=== PATIENT | female | born 1965 | race African-American/Black ===

== ENCOUNTER 2016-10-23 22:04 | Emergency (ER) | payer BC ==
[2016-10-23 23:04] LABS: ABSOLUTE EOSINOPHILS # (AUTO) 0.2 10^3/uL (0.0-0.6); ABSOLUTE LYMPHOCYTES (AUTO) 2.5 10^3/uL (0.5-4.7); ABSOLUTE MONOCYTES (AUTO) 0.4 10^3/uL (0.1-1.4); BASOPHILS % (AUTO) 0.4 % (0-2); EOSINOPHILS % (AUTO) 3.2 % (0-6); HEMOGLOBIN 13.3 g/dL (12.0-15.5); HGB HCT DIFFERENCE 0.9; LYMPHOCYTES % (AUTO) 34.8 % (13-45); MEAN CORPUSCULAR HEMOGLOBIN 30.4 pg (27.0-33.4); MEAN CORPUSCULAR VOLUME 89 fl (80-97); MONOCYTES % (AUTO) 5.4 % (3-13); RED BLOOD COUNT 4.37 10^6/uL (3.72-5.28); RED CELL DISTRIBUTION WIDTH 13.3 % (11.5-14.0); SEGMENTED NEUTROPHILS % (AUTO) 56.2 % (42-78); WHITE BLOOD COUNT 7.1 10^3/uL (4.0-10.5)
[2016-10-23 23:13] LABS: ALANINE AMINOTRANSFERASE 20 U/L (9-52); ALKALINE PHOSPHATASE 60 U/L (38-126); ANION GAP 12 (5-19); ASPARTATE AMINO TRANSFERASE 29 U/L (14-36); BILIRUBIN,DIRECT 0.9 mg/dL (0.0-0.4); BILIRUBIN,TOTAL 1.2 mg/dL (0.2-1.3); BLOOD UREA NITROGEN 11 mg/dL (7-20); CALCIUM 9.4 mg/dL (8.4-10.2); CARBON DIOXIDE 25 mmol/L (22-30); CHLORIDE 105 mmol/L (98-107); CREATININE RESULT 0.78 mg/dL (0.52-1.25); GLUCOSE 116 mg/dL (75-110); POTASSIUM 3.8 mmol/L (3.6-5.0); SODIUM 141.6 mmol/L (137-145); TOTAL PROTEIN 7.3 g/dL (6.3-8.2)
[2016-10-23 23:21] LABS: APPEARANCE,URINE CLEAR; BILIRUBIN,URINE NEGATIVE (NEGATIVE); GLUCOSE, URINE NEGATIVE (NEGATIVE); KETONES,URINE NEGATIVE (NEGATIVE); LEUKOCYTE ESTERASE,URINE NEGATIVE (NEGATIVE); NITRITE,URINE NEGATIVE (NEGATIVE); PROTEIN,URINE NEGATIVE (NEGATIVE); URINE SPECIFIC GRAVITY 1.003; UROBILINOGEN,URINE NEGATIVE mg/dL (<2.0)
[2016-10-24] MEDS ORDERED: CLONIDINE HCL 0.1 MG TABLET PO ONE (00:31)
[2016-10-24] MEDS ORDERED: DIPHENHYDRAMINE HCL 50 MG/ML VIAL IV ONE (00:47)
[2016-10-24] MEDS ORDERED: PROCHLORPERAZINE EDISYLATE INJ 10 MG/2 ML VIAL IV ONE (00:47)
[2016-10-24] MEDS ORDERED: KETOROLAC TROMETHAMINE INJ/PF 30 MG/1 ML SDV IV ONE (00:47)
--- NOTE | 2016-10-24 00:52 | ER Document Report ---
ED General - General Chief Complaint: Headache Stated Complaint: HEADACHE Notes: Patient is a 51-year-old female past medical history of hypertension who presents with a dull, constant, throbbing right-sided headache that has been present since this morning. States that it was gradual in onset and got progressively worse through the day. States lights and sounds worsen the headache. She has not tried anything to improve the headache. States that her headache often gets worse when her blood pressure is uncontrolled. She denies any focal weakness, numbness, fever, confusion, or vomiting. Has had similar headaches in the past. She has not seen a primary care doctor regarding today' s concerns. TRAVEL OUTSIDE OF THE [place] IN LAST 30 DAYS: No - Related Data Allergies/Adverse Reactions: No Known Allergies Allergy (Verified 03/15/16 16:29) Past Medical History - General Information source: Patient - Social History Smoking Status: Never Smoker Frequency of alcohol use: None Drug Abuse: None Lives with: Spouse/Significant other Family History: Reviewed & Not Pertinent Patient has suicidal ideation: No Patient has homicidal ideation: No Pulmonary Medical History: Reports: Hx Asthma Renal/ Medical History: Denies: Hx Peritoneal Dialysis - Immunizations Hx Diphtheria, Pertussis, Tetanus Vaccination: Yes Review of Systems - Review of Systems Notes: Constitutional: Negative for fever. HENT: Negative for sore throat. Eyes: Negative for visual changes. Cardiovascular: Negative for chest pain. Respiratory: Negative for shortness of breath. Gastrointestinal: Negative for abdominal pain, vomiting or diarrhea. Genitourinary: Negative for dysuria. Musculoskeletal: Negative for back pain. Skin: Negative for rash. Neurological: Positive for headaches, negative for weakness or numbness. 10 point ROS negative except as marked above and in HPI. Physical Exam - Vital signs Vitals: Temp Pulse Resp BP Pulse Ox 98.5 F 96 18 176/79 H 97 10/23/16 22:24 10/23/16 22:24 10/23/16 22:24 10/23/16 22:24 10/23/16 22:24 Interpretation: Hypertensive Notes: PHYSICAL EXAMINATION: GENERAL: Well-appearing, well-nourished and in no acute distress. HEAD: Atraumatic, normocephalic. EYES: Pupils equal round and reactive to light, extraocular movements intact, sclera anicteric, conjunctiva are normal. ENT: nares patent, oropharynx clear without exudates. Moist mucous membranes. NECK: Normal range of motion, supple without lymphadenopathy LUNGS: Breath sounds clear to auscultation bilaterally and equal. No wheezes rales or rhonchi. HEART: Regular rate and rhythm without murmurs ABDOMEN: Soft, nontender, normoactive bowel sounds. No guarding, no rebound. No masses appreciated. EXTREMITIES: Normal range of motion, no pitting or edema. No cyanosis. NEUROLOGICAL: Face symmetric. Tongue protrudes midline. Extraocular motions intact. Pupils are 2 mm and equally reactive. Normal speech, normal gait. 5 out of 5 strength in both the distal and proximal upper and lower extremities bilaterally. Sensation is grossly intact throughout. Finger to nose testing normal. Pronator drift normal. PSYCH: Normal mood, normal affect. SKIN: Warm, Dry, normal turgor, no rashes or lesions noted. Course - Re-evaluation Re-evalutation: 10/24/16 00:50 Presentation of a headache that appears to be most consistent with tension versus migrainous type headache. Headache was not maximal in onset, patient has no focal neurologic deficits, no nuchal rigidity, vital signs within normal limits, no papilledema, and patient is overall well in appearance. Based on clinical history and examination I do not suspect an acute subarachnoid hemorrhage, dural venous sinus thrombosis, acute meningitis, or intercranial mass. Given my low clinical suspicion for any acute life-threatening etiology, I do not feel advanced neuro imaging or laboratory testing is indicated at this time. Will proceed with headache cocktail and reassess. 10/24/16 02:26 Patient has had complete resolution of her headache and her blood pressure is improved at this time.At this time will discharge with return precautions and follow-up recommendations. Verbal discharge instructions given a the bedside and opportunity for questions given. Medication warnings reviewed. Patient is in agreement with this plan and has verbalized understanding of return precautions and the need for primary care follow-up in the next 24-72 hours. - Vital Signs Vital signs: Temp Pulse Resp BP Pulse Ox 98.5 F 96 18 176/79 H 97 10/23/16 22:24 10/23/16 22:24 10/23/16 22:24 10/23/16 22:24 10/23/16 22:24 - Laboratory Result Diagrams: 10/23/16 22:35 10/23/16 22:35 Laboratory results interpreted by me: 10/23/16 22:35 Glucose 116 H Direct Bilirubin 0.9 H Discharge - Discharge Clinical Impression: Migraine headache Qualifiers: Migraine type: unspecified Status migrainosus presence: with status migrainosus Intractability: not intractable Qualified Code(s): G43.901 - Migraine, unspecified, not intractable, with status migrainosus Condition: Good Disposition: HOME, SELF-CARE Additional Instructions: You were seen today for a migraine headache. Please follow-up with your primary care doctor regarding today's ED visit. Return to emergency department immediately if you develop a headache that gets to its maximum severity within 20 minutes of onset, you pass out, you develop weakness, numbness, changes in your vision, become unable to keep any fluids down for more than 12 hours, or develop a fever greater than 100.4 degrees Fahrenheit. If you develop a similar migraine headache in the future I recommend that you immediately take 600 mg of ibuprofen and 50 mg of Benadryl and go to sleep as quickly as possible. This can often prevent your migraine headache from becoming severe. You were seen today for blood pressure that was high. This is a long-term risk factor for multiple medical problems including heart attack and stroke. However, the blood pressure in of itself will not cause you to have an acute stroke or heart attack over the course of just several days or weeks. You need to have a gradual reduction of your blood pressure back to normal levels over the next several months in conjunction with your primary care physician. Return if you develop headache, weakness, numbness, chest pain, pass out, or have any other symptoms that are concerning to you. Prescriptions: Hydrochlorothiazide 25 mg PO DAILY #30 tablet
[2016-10-24 02:35] VITALS: BP 139/68
== END 2016-10-24 02:36 | disposition home or self-care (01) ==
LOC: ER 22:04
DX: G43.901 Migraine, unspecified, not intractable, with status migrainosus (principal); I10 Essential (primary) hypertension; J45.909 Unspecified asthma, uncomplicated
CPT/HCPCS: 99283; 96374; 96375; 36415; 85025; 80053; 81001; J1200; J1885; J0780

== ENCOUNTER → 2016-11-30 | Outpatient (CLI) | payer BC ==
--- NOTE | 2016-11-30 13:22 | WOMENS IMAGING REPORT ---
EXAM DESCRIPTION: BILAT SCREENING MAMMO W/CAD COMPLETED DATE/TIME: 11/30/2016 7:49 am REASON FOR STUDY: Z12.31, ROUTINE SCREENING MAMMO Z12.31 ENCNTR SCREEN MAMMOGRAM FOR MALIGNANT NEOP LASM OF GARRETT COMPARISON: 2010. TECHNIQUE: Standard craniocaudal and mediolateral oblique views of each breast recorded using [employer] l acquisition. LIMITATIONS: None. FINDINGS: No masses, calcifications or architectural distortion. No areas of suspicion. Read with the assistance of CAD. .[facility] - R2 [employer] Version 1.3 .[facility] - R2 C[employer]ova Version 1.3 .[facility] - R2 C[employer]ova Version 2.4 .[facility] - R2 Cenova Version 2.4 .[facility] - R2 [employer] Version 9.2 IMPRESSION: NORMAL MAMMOGRAM. BIRADS 1. BREAST DENSITY: a. The breasts are almost entirely fatty. BIRAD: 1 NEGATIVE RECOMMENDATION: ROUTINE SCREENING COMMENT: The patient has been notified of the results by letter per SA requirements. Additional no tification policies are in place for contacting patient with suspicious or incomplete findings. Quality ID #[id number]: The [employer] recommends an annual screening mammogram for women aged 40 years or over. This facility utilizes a reminder system to ensure that all patients receive reminder letters, and/or direct phone calls for appointments. This includes reminders for routine scr eening mammograms, diagnostic mammograms, or other Breast Imaging Interventions when appropriate. Th is patient will be placed in the appropriate reminder system. The [employer] (ACR) has developed recommendations for screening MRI of the breast s in certain patient populations, to be used in conjunction with mammography. Breast MRI surveillanc e may be appropriate for women with more than 20% lifetime risk of developing breast cancer as deter mined by genetic testing, significant family history of the disease, or history of mantle radiation f or Hodgkins Disease. ACR Practice Guidelines 2008. TECHNICAL DOCUMENTATION: FINDING NUMBER: (1) ASSESSMENT: (1) JOB ID: [id number] [employer]- All Rights Reserved
== END ==
LOC: WI 10:17
PROVIDERS: ATTEND Physician Assistant
DX: Z12.31 Encounter for screening mammogram for malignant neoplasm of breast (principal)
CPT/HCPCS: 77067; G0202

== ENCOUNTER 2017-07-27 00:03 | Emergency (ER) | payer BC ==
[2017-07-27] MEDS ORDERED: ASPIRIN 81 MG TABLET, CHEWABLE PO ONE (03:12)
[2017-07-27 05:27] LABS: ABSOLUTE EOSINOPHILS # (AUTO) 0.2 10^3/uL (0.0-0.6); ABSOLUTE LYMPHOCYTES (AUTO) 1.6 10^3/uL (0.5-4.7); ABSOLUTE MONOCYTES (AUTO) 0.7 10^3/uL (0.1-1.4); ABSOLUTE NEUT (AUTO) 2.3 10^3/uL (1.7-8.2); BASOPHILS % (AUTO) 0.8 % (0-2); EOSINOPHILS % (AUTO) 3.2 % (0-6); HEMATOCRIT 37.4 % (36.0-47.0); HEMOGLOBIN 12.7 g/dL (12.0-15.5); LYMPHOCYTES % (AUTO) 33.4 % (13-45); MEAN CORPUSCULAR HEMOGLOBIN 30.8 pg (27.0-33.4); MEAN CORPUSCULAR HGB CONC 33.9 g/dL (32.0-36.0); MEAN CORPUSCULAR VOLUME 91 fl (80-97); MONOCYTES % (AUTO) 13.7 % (3-13); PLATELET COUNT 330 10^3/uL (150-450); RED BLOOD COUNT 4.12 10^6/uL (3.72-5.28); RED CELL DISTRIBUTION WIDTH 12.8 % (11.5-14.0); SEGMENTED NEUTROPHILS % (AUTO) 48.9 % (42-78); TOTAL CELLS COUNTED % (AUTO) 100 %; WHITE BLOOD COUNT 4.8 10^3/uL (4.0-10.5)
[2017-07-27 05:39] LABS: ALANINE AMINOTRANSFERASE 31 U/L (9-52); ALKALINE PHOSPHATASE 65 U/L (38-126); ANION GAP 10 (5-19); ASPARTATE AMINO TRANSFERASE 50 U/L (14-36); BILIRUBIN,DIRECT 0.6 mg/dL (0.0-0.4); BILIRUBIN,TOTAL 0.9 mg/dL (0.2-1.3); BLOOD UREA NITROGEN 12 mg/dL (7-20); CALCIUM 9.4 mg/dL (8.4-10.2); CARBON DIOXIDE 28 mmol/L (22-30); CHLORIDE 107 mmol/L (98-107); CREATINE KINASE 212 U/L (30-135); GLUCOSE 108 mg/dL (75-110); SODIUM 144.6 mmol/L (137-145); TOTAL PROTEIN 6.9 g/dL (6.3-8.2)
--- NOTE | 2017-07-27 05:40 | RADIOLOGY REPORT (SQ) ---
EXAM DESCRIPTION: CHEST SINGLE VIEW CLINICAL HISTORY: chest pain COMPARISON: 07/27/2015 FINDINGS: Single frontal view of the chest. The cardiomediastinal silhouette has normal size and contour. No consolidation, pneumothorax, or pleural effusion. No displaced rib fractures identified. Upper abdominal soft tissues are unremarkable. Leads overlie the chest IMPRESSION: 1. No acute pulmonary process identified.
[2017-07-27 05:51] LABS: CREATINE KINASE MB 0.52 ng/mL (<4.55)
[2017-07-27 05:52] LABS: TROPONIN I < 0.012 ng/mL
[2017-07-27] MEDS ORDERED: IBUPROFEN 800 MG TABLET PO ONE (08:02)
--- NOTE | 2017-07-27 08:02 | ER Document Report ---
ED General - General Chief Complaint: Chest Pain Stated Complaint: CHEST DISCOMFORT Time Seen by Provider: 07/27/17 07:15 Notes: Patient is a 52-year-old female presents emergency department with 3 days of dry cough. Patient states that last evening she was lying in bed got up to go get some Tylenol had a coughing spell and then had some chest tightness afterwards. She does admit to a history of asthma and states that her chest tightness lasted about 15 minutes and felt similar to previous asthma attacks. This wears off all on its own. She did not have to utilize any of her home inhalers. She states what brought her in is that she had some chest pain only with movement and to touch on the right part of her chest. She states that it hurts to touch and when she coughs. She denies any chest pain, pleurisy with inspiration. She denies any pain supine. She describes it as a 2 out of 5 in severity. She otherwise denies any upper respiratory infection symptoms, fevers , body aches, headache, productive cough, shortness of breath, dyspnea on exertion, nausea, vomiting, epigastric pain. Primary care is with [facility] in [facility] Denies any allergies Takes hydrochlorothiazide 25 mg once a day for high blood pressure Denies any history of hyperlipidemia, diabetes, [place], previous chest pain, CVA, DVT, PE, recent travel, recent surgery, control use. Denies any previous cath or stress test patient is a non-smoker. TRAVEL OUTSIDE OF THE [place] IN LAST 30 DAYS: No - Related Data Allergies/Adverse Reactions: No Known Allergies Allergy (Verified 03/15/16 16:29) Past Medical History - Social History Smoking Status: Never Smoker Chew tobacco use (# tins/day): No Frequency of alcohol use: None Drug Abuse: None Family History: Reviewed & Not Pertinent Patient has suicidal ideation: No Patient has homicidal ideation: No - Past Medical History Cardiac Medical History: Reports: Hx Hypertension Pulmonary Medical History: Reports: Hx Asthma Renal/ Medical History: Denies: Hx Peritoneal Dialysis - Immunizations Hx Diphtheria, Pertussis, Tetanus Vaccination: Yes Review of Systems - Review of Systems Constitutional: See HPI EENT: No symptoms reported Cardiovascular: No symptoms reported Respiratory: See HPI Gastrointestinal: No symptoms reported Musculoskeletal: No symptoms reported Neurological/Psychological: No symptoms reported -: Yes All other systems reviewed and negative Physical Exam - Vital signs Vitals: Temp Pulse Resp BP Pulse Ox 98.7 F 79 16 159/88 H 99 07/27/17 03:02 07/27/17 03:02 07/27/17 03:02 07/27/17 03:02 07/27/17 03:02 - Notes Notes: PHYSICAL EXAM GENERAL: Alert, interacts well. HEAD: Normocephalic, atraumatic. EYES: Pupils equal, round, and reactive to light. Extraocular movements intact. ENT: Oral mucosa moist, tongue midline. NECK: Full range of motion. Supple. Trachea midline. LUNGS: Clear to auscultation bilaterally, no wheezes, rales, or rhonchi. No respiratory distress. HEART: Chest wall tender right parasternal area with pain reproducible to palpation. Regular rate and rhythm. No murmurs, gallops, or rubs. ABDOMEN: Soft, nondistended, nontender. No guarding, rebound, or rigidity.. Bowel sounds present in all 4 quadrants. EXTREMITIES: Moves all 4 extremities spontaneously. No edema, radial and dorsalis pedis pulses 2/4 bilaterally. No cyanosis. NEUROLOGICAL: Alert and oriented x4. Normal speech. PSYCH: Normal affect, normal mood. SKIN: Warm, dry, normal turgor. No rashes or lesions noted. Course - Re-evaluation Re-evalutation: 07/27/17 10:25 Patient is a 52-year-old female is hemodynamically stable, no acute distress and afebrile. Presentation is consistent with costochondritis likely associated with patient's recent upper respiratory infection and cough. Chest x -ray does not reveal any evidence of acute infiltrate. Patient saturating 100% on room air. Able to ambulate without any difficulty, associated tachypnea or tachycardia. Patient is PERC negative. Patient is very well in appearance, vitals within normal limits. Low clinical suspicion for ACS given clinical history, exam, EKG without ST elevations or depressions, and negative initial troponin. HEART score less than or equal to 3. PE also seems unlikely given clinical history, absence of tachycardia or dyspnea. Well's score of 0. CXR without evidence of pneumothorax or pneumonia. No widened mediastinum. Aortic dissection also seems unlikely given history, symmetric pulses, CXR, and vitals. At this time will discharge with return precautions and follow-up recommendations. Verbal discharge instructions given a the bedside and opportunity for questions given. Medication warnings reviewed. Patient is in agreement with this plan and has verbalized understanding of return precautions and the need for primary care follow-up in the next 24-72 hours. - Vital Signs Vital signs: Temp Pulse Resp BP Pulse Ox 98.7 F 79 20 153/78 H 98 07/27/17 03:02 07/27/17 03:02 07/27/17 07:14 07/27/17 07:14 07/27/17 07:14 - Laboratory Result Diagrams: 07/27/17 05:15 07/27/17 05:15 Laboratory results interpreted by me: 07/27/17 07/27/17 05:15 05:15 Monocytes % 13.7 H Direct Bilirubin 0.6 H AST 50 H Creatine Kinase 212 H - Diagnostic Test Radiology reviewed: Image reviewed, Reports reviewed - EKG Interpretation by Me EKG shows normal: Sinus rhythm Rate: Normal Rhythm: NSR When compared to previous EKG there are: No significant change Discharge - Discharge Clinical Impression: Chest wall pain Condition: Good Disposition: HOME, SELF-CARE Additional Instructions: NORMAL EXAM AND WORKUP: At this time, your examination and workup show no significant abnormality. No significant abnormal physical findings were noted. All laboratory, EKG, and imaging (x-ray, CT scans, ultrasound) studies that were ordered show no significant abnormality. Although your examination and all studies that were ordered showed no significant abnormal finding, there are no examinations and no studies that are 100% accurate. There is always the possibility that some abnormality could exist and not be detected with physical examination or within the limits and capabilities of laboratory and other studies. You should return or follow up as you were instructed on your visit today for further evaluation if your symptoms do not resolve. CHEST WALL PAIN: Your chest pain may be coming from the chest wall. This is often caused by straining the muscles or joints in the chest during physical activity, direct trauma, coughing, or vigorous vomiting. Persons with arthritis are especially prone to this type of pain, due to inflammation of the cartilage joints near the breast bone. Occasionally, no cause can be found. Rest from strenuous physical activity. This kind of chest pain is usually made worse by movement of the chest. Depending on the symptoms, we may prescribe medicine for pain, muscle relaxation, and antiinflammatory effects. If the pain is new, and seems to be due to muscle strain, cold packs can help. Otherwise, apply gentle warmth to the painful area for 15 minutes every hour or two. You should call contact the doctor immediately if things change. Further evaluation is needed if you develop a fever or cough, if the nature of the pain changes, or if you become short of breath. FOLLOW-UP CARE: If you have been referred to a physician for follow-up care, call the physician s office for an appointment as you were instructed or within the next two days. If you experience worsening or a significant change in your symptoms, notify the physician immediately or return to the Emergency Department at any time for re-evaluation. Referrals: PHOEBE GUERRA MD [ACTIVE STAFF] - Follow up in 3-5 days
--- NOTE | 2017-07-27 09:20 | EKG REPORT ---
SEVERITY:- BORDERLINE ECG - SINUS RHYTHM PROBABLE LEFT ATRIAL ABNORMALITY : Confirmed by: Modesto Conway 27-Jul-2017 09:19:42
--- NOTE | 2017-07-27 09:20 | EKG REPORT ---
SEVERITY:- BORDERLINE ECG - SINUS RHYTHM BORDERLINE PROLONGED QT INTERVAL : Confirmed by: Modesto Conway 27-Jul-2017 09:19:50
[2017-07-27] MEDS ORDERED: HYDROCHLOROTHIAZIDE 25 MG TABLET PO ONE (09:28)
[2017-07-27 10:57] VITALS: BP 157/78
== END 2017-07-27 11:08 | disposition home or self-care (01) ==
LOC: ER 00:03
DX: R07.89 Other chest pain (principal); J45.909 Unspecified asthma, uncomplicated; R05 Cough; I10 Essential (primary) hypertension; Z79.899 Other long term (current) drug therapy
CPT/HCPCS: 36415; 71045; 80053; 82550; 82553; 84484; 85025; 93005; 93010; 99284

== ENCOUNTER → 2017-11-14 | Outpatient (CLI) | payer BC ==
--- NOTE | 2017-11-15 10:29 | XCELERA REPORT ---
[address] [address] Transthoracic Echocardiogram Report Name: CHRISTINA KUMAR Age: 52 yrs Gender: Female : 1965 Patient Status: Outpatient Patient Location: Study Date: 11/14/2017 11:12 AM Height: 61 in Weight: 204 lb BSA: 1.9 m2 Procedure: A complete two-dimensional transthoracic echocardiogram was performed (2D, M-mode, spectral and color flow Doppler). The study was technically adequate with some images being suboptimal in quality. Reason For Study: CARDIOMEGALY Ordering Physician: JOLENE BOBBY Performed By: Orlando Talley Interpretation Summary The left ventricular ejection fraction is normal. There is borderline concentric left ventricular hypertrophy. The left ventricle is grossly normal size. Doppler measurements suggest pseudonormalized left ventricular relaxation, which is associated with grade II/IV or mild to moderate diastolic dysfunction Wall motion cannot be accurately commented on, but no definite regional wall motion abnormalities noted. The right ventricular systolic function is normal. Borderline right ventricular enlargement. The right atrium is normal in size Borderline left atrial enlargement. There is no mitral valve stenosis. There is a trace amount of mitral regurgitation There is no aortic valve stenosis No aortic regurgitation is present. There is mild pulmonary hypertension by echo There is a mild amount of tricuspid regurgitation Right ventricular systolic pressure is estimated to be elevated at 30- 40mmHg. The aortic root is not well visualized but is probably normal size. The inferior vena cava appeared normal and decreased > 50% with respiration (RAP 5-10 mmHg) There is no pericardial effusion. MMode/2D Measurements & Calculations RVDd: 3.1 cm LVIDd: 4.6 cm FS: 43.8 % Ao root diam: 2.5 cm IVSd: 1.0 cm LVIDs: 2.6 cm EDV(Teich): 98.7 ml LVPWd: 0.87 cm ESV(Teich): 24.6 ml Ao root area: 4.8 cm2 EF(Teich): 75.1 % Doppler Measurements & Calculations MV E max elvis: MV dec slope: Ao V2 max: LV V1 max P.0 cm/sec 200.1 cm/sec 6.1 mmHg MV A max elvis: 495.0 cm/sec2 Ao max PG: LV V1 max: 120.0 cm/sec MV dec time: 16.0 mmHg 123.4 cm/sec MV E/A: 0.83 0.20 sec PA V2 max: TR max elvis: 108.0 cm/sec 254.4 cm/sec PA max P.7 mmHgTR max P.2 mmHg Left Ventricle The left ventricle is grossly normal size. There is borderline concentric left ventricular hypertrophy. The left ventricular ejection fraction is normal. Doppler measurements suggest pseudonormalized left ventricular relaxation, which is associated with grade II/IV or mild to moderate diastolic dysfunction. Wall motion cannot be accurately commented on, but no definite regional wall motion abnormalities noted. Right Ventricle Borderline right ventricular enlargement. There is normal right ventricular wall thickness. The right ventricular systolic function is normal. Atria The right atrium is normal in size. Borderline left atrial enlargement. Interarterial septum not well visualized and not well dopplered. Cannot comment on ASD/PFO presence. Mitral Valve The mitral valve is grossly normal. There is no mitral valve stenosis. There is a trace amount of mitral regurgitation. Aortic Valve The aortic valve is grossly normal. There is no aortic valve stenosis. No aortic regurgitation is present. Tricuspid Valve The tricuspid valve is not well visualized, but is grossly normal. There is no tricuspid stenosis. There is mild pulmonary hypertension by echo. There is a mild amount of tricuspid regurgitation. Right ventricular systolic pressure is estimated to be elevated at 30-40mmHg. Pulmonic Valve The pulmonic valve is not well visualized. Great Vessels The aortic root is not well visualized but is probably normal size. The inferior vena cava appeared normal and decreased > 50% with respiration (RAP 5-10 mmHg). Effusions There is no pericardial effusion. : JOLENE BOBBY > Modesto Conway
== END ==
LOC: SP 10:43
PROVIDERS: ATTEND Physician Assistant
DX: I51.7 Cardiomegaly (principal)
CPT/HCPCS: 93306

== ENCOUNTER 2017-12-17 21:07 | Emergency (ER) | payer OTHER, BC ==
[2017-12-17 21:20] VITALS: BP 167/83
[2017-12-17] MEDS ORDERED: KETOROLAC TROMETHAMINE 60 MG/2 ML SDV IM ONE (22:34)
--- NOTE | 2017-12-17 22:35 | ER Document Report ---
ED Extremity Problem, Lower - General Mode of Arrival: Ambulatory Information source: Patient TRAVEL OUTSIDE OF THE [place] IN LAST 30 DAYS: No - General Chief Complaint: Leg Pain Stated Complaint: RIGHT LEG PAIN Time Seen by Provider: 12/17/17 21:50 Notes: Patient is a 52 year old female that presents today with complaints of RLE pain. Patient states her pain started today and yesterday at worked she was moving "sodas and teas" which she thinks likely caused this injury. Patient denies fevers, chills, hx of DM, or falls/trauma. (TESS JACOME) - Related Data Allergies/Adverse Reactions: No Known Allergies Allergy (Verified 03/15/16 16:29) Past Medical History - General Information source: Patient - Social History Smoking Status: Unknown if Ever Smoked Cigarette use (# per day): No Frequency of alcohol use: None Drug Abuse: None Lives with: Family Family History: Reviewed & Not Pertinent Patient has suicidal ideation: No Patient has homicidal ideation: No - Past Medical History Cardiac Medical History: Reports: Hx Hypertension Pulmonary Medical History: Reports: Hx Asthma Renal/ Medical History: Denies: Hx Peritoneal Dialysis Surgical Hx: Negative - Immunizations Hx Diphtheria, Pertussis, Tetanus Vaccination: Yes Review of Systems - Review of Systems Constitutional: denies: Chills, Fever EENT: No symptoms reported Cardiovascular: No symptoms reported Respiratory: No symptoms reported Gastrointestinal: No symptoms reported Genitourinary: No symptoms reported Female Genitourinary: No symptoms reported Musculoskeletal: See HPI, Joint pain - RLE Skin: No symptoms reported Hematologic/Lymphatic: No symptoms reported Neurological/Psychological: No symptoms reported -: Yes All other systems reviewed and negative Physical Exam - Vital signs Vitals: Temp Pulse Resp BP Pulse Ox 98.8 F 89 18 167/83 H 98 12/17/17 21:18 12/17/17 21:18 12/17/17 21:18 12/17/17 21:18 12/17/17 21:18 - Notes Notes: Physical Exam: General: Alert, appears well. HEENT: Normocephalic. Atraumatic. PERRLA. Extraocular movements intact. Oropharynx clear. Neck: Supple. Respiratory: No respiratory distress. Abdominal: Normal Inspection. No distension. Extremities: Moves all four extremities. Minimal pain elicited with movement of RLE. Neurological: Normal cognition. AAOx4. Normal speech. Psychological: Normal affect. Normal Mood. Skin: Warm. Dry. Normal color. (TESS JACOME) Course - Re-evaluation Re-evalutation: 12/17/17 22:35 Patient well-appearing in no acute distress no recent traumas or falls. Presents with right leg pain worse with movement and better with rest. She states she was moving a lot of equipment at her work and in the next morning is when her pain started. No history of blood clots in her legs. She has good circulation neurovascularly intact with no edema. Did not feel like her symptoms are suggestive of DVT. Will provide 5 days of steroids and she is to follow-up with her primary care physician next week if symptoms are not improving. (ANDREW CLARK) - Vital Signs Vital signs: Temp Pulse Resp BP Pulse Ox 98.8 F 89 18 167/83 H 98 12/17/17 21:18 12/17/17 21:18 12/17/17 21:18 12/17/17 21:18 12/17/17 21:18 Discharge - Discharge Clinical Impression: Leg strain Condition: Good Disposition: HOME, SELF-CARE Instructions: Muscle Strain ([facility]) Additional Instructions: Please follow-up with your primary care physician within the next week if symptoms are not improving. Please note that your activity for the next week and do not lift more than 25 pounds Prescriptions: Prednisone [Deltasone 20 mg Tablet] 2 tab PO DAILY 5 Days #10 tablet Forms: Return to School, Return to Work Scribe Attestation: 12/20/17 19:10 I personally performed the services described documentation, reviewed and edited the documentation which was dictated to describe my presence, and it accurately records my words and actions. (ANDREW CLARK) Scribe Documentation - Scribe Written by Duncanibe:: Michael Schafer, 12/17/2017 2349 acting as scribe for :: Joaquín
== END 2017-12-17 22:57 | disposition home or self-care (01) ==
LOC: ER 21:07
DX: S86.911A Strain of unspecified muscle(s) and tendon(s) at lower leg level, right leg, initial encounter (principal); M79.604 Pain in right leg; X58.XXXA Exposure to other specified factors, initial encounter; I10 Essential (primary) hypertension; J45.909 Unspecified asthma, uncomplicated
CPT/HCPCS: 99283; J1885

== ENCOUNTER 2018-01-22 03:53 | Emergency (ER) | payer BC ==
[2018-01-22] MEDS ORDERED: ASPIRIN 81 MG TABLET, CHEWABLE PO ONE (04:33)
--- NOTE | 2018-01-22 04:37 | ER Document Report ---
ED Cardiac - General Mode of Arrival: Ambulatory Information source: Patient TRAVEL OUTSIDE OF THE [place] IN LAST 30 DAYS: No <TY GUZMAN - Last Filed: 01/22/18 06:57> <AMINATA SAENZ - Last Filed: 01/22/18 14:19> - General Chief Complaint: Chest Tightness Stated Complaint: NAUSEA Time Seen by Provider: 01/22/18 04:23 Notes: Patient is a 52-year-old female who presents with chief complaint of chest tightness. Patient reports that she woke up at approximately 130 this morning with a headache, states she took ibuprofen 200 mg went back to bed and then woke up a few minutes later with a tightness across the middle of her chest. Patient denies any radiation of this tightness. Does patient does report associated nausea and diarrhea. Denies any shortness of breath. Patient reports the pain is similar to the last time she was seen in the emergency department. Patient reports that she has had a negative cardiac workup done recently. Patient reports that she missed her blood pressure medication yesterday. (TY GUZMAN) - Related Data Allergies/Adverse Reactions: No Known Allergies Allergy (Verified 01/22/18 03:55) Past Medical History - General Information source: Patient - Social History Smoking Status: Never Smoker Frequency of alcohol use: None Drug Abuse: None Lives with: Family Family History: Reviewed & Not Pertinent - Past Medical History Cardiac Medical History: Reports: Hx Hypertension Pulmonary Medical History: Reports: Hx Asthma Renal/ Medical History: Denies: Hx Peritoneal Dialysis - Immunizations Hx Diphtheria, Pertussis, Tetanus Vaccination: Yes <TY GUZMAN - Last Filed: 01/22/18 06:57> Review of Systems - Review of Systems Constitutional: No symptoms reported EENT: No symptoms reported Cardiovascular: See HPI Respiratory: No symptoms reported Gastrointestinal: No symptoms reported Genitourinary: No symptoms reported Female Genitourinary: No symptoms reported Musculoskeletal: No symptoms reported Skin: No symptoms reported Hematologic/Lymphatic: No symptoms reported Neurological/Psychological: No symptoms reported <TY GUZMAN - Last Filed: 01/22/18 06:57> Physical Exam <TY GUZMAN - Last Filed: 01/22/18 06:57> <AMINATA SAENZ - Last Filed: 01/22/18 14:19> - Vital signs Vitals: Temp Pulse Resp BP Pulse Ox 98.0 F 108 H 18 153/89 H 98 01/22/18 03:57 01/22/18 03:57 01/22/18 03:57 01/22/18 03:57 01/22/18 03:57 - Notes Notes: PHYSICAL EXAMINATION: GENERAL: Well-appearing, well-nourished and in no acute distress. HEAD: Atraumatic, normocephalic. EYES: Pupils equal round and reactive to light, extraocular movements intact, conjunctiva are normal. ENT: Nares patent, oropharynx clear without exudates. Moist mucous membranes. NECK: Normal range of motion, supple without lymphadenopathy LUNGS: Breath sounds clear to auscultation bilaterally and equal. No wheezes rales or rhonchi. HEART: Regular rate and rhythm without murmurs ABDOMEN: Soft, nontender, nondistended abdomen. No guarding, no rebound. No masses appreciated. Female : deferred Musculoskeletal: Normal range of motion, no pitting or edema. No cyanosis. NEUROLOGICAL: Cranial nerves grossly intact. Normal speech, normal gait. Normal sensory, motor exams PSYCH: Normal mood, normal affect. SKIN: Warm, Dry, normal turgor, no rashes or lesions noted. (TY GUZMAN) Course - Laboratory Result Diagrams: 01/22/18 04:50 01/22/18 04:50 <TY GUZMAN - Last Filed: 01/22/18 06:57> - Laboratory Result Diagrams: 01/22/18 04:50 01/22/18 04:50 <AMINATA SAENZ - Last Filed: 01/22/18 14:19> - Re-evaluation Re-evalutation: 01/22/18 04:36 Well-appearing 52-year-old female presenting with chief complaint of chest tightness. Patient reports that the chest tightness has now resolved on its own. Will initiate chest pain workup. Vital signs stable. EKG was performed by triage nurse, sinus rhythm rate of 92, normal axis. CBC, comprehensive metabolic panel, cardiac enzymes are all unremarkable. Chest x-ray with no acute findings. Patient updated on status. Heart score 2. Will draw a second troponin at 0830. Patient reports chest pain-free at this time. Patient denies any needs. Patient signed out to Kayleen Saenz NP. (TY GUZMAN) Disposition given by Ty Guzman NP at 0715. Patient evaluated at bedside, remains chest pain-free, vitals stable no distress. Awaiting second set of troponins. Second troponin resulted, less than 0.012. 742/72, heart rate 72, respirations 18, pulse ox 100, patient afebrile. Patient did have a stress test completed in 2016 Dr. Umaña, energy director. chest x-ray negative for any acute findings, no STEMI. CBC negative for leukocytosis or anemia, CMP negative for hepatic renal dysfunction, electrolytes stable. Pt given asa while in ER. Second set of cardiac enzymes are negative. Patient remains afebrile, vitals stable no distress. Third set of cardiac enzymes drawn at 1230, patient remains chest pain-free. 1415-3 set of cardiac enzymes negative, \After performing a Medical Screening Examination, I estimate there is LOW risk for RUPTURED ESOPHAGUS, PNEUMOTHORAX, PULMONARY EMBOLISM, ACUTE CORONARY SYNDROME, OR THORACIC AORTIC DISSECTION, thus I consider the discharge disposition reasonable. I have reevaluated this patient multiple times and no significant life threatening changes are noted. The patient and I have discussed the diagnosis and risks, and we agree with discharging home with close follow-up. Advised patient to follow-up with energy director as well as primary care provider within the next 3-5 days. Heart score was reduced to 1 due to age. we also discussed returning to the Emergency Department immediately if new or worsening symptoms occur. We have discussed the symptoms which are most concerning (e.g., bloody sputum, worsening pain or shortness of breath) that necessitate immediate return. (AMINATA SAENZ) - Vital Signs Vital signs: Temp Pulse Resp BP Pulse Ox 98.0 F 108 H 16 159/77 H 97 01/22/18 03:57 01/22/18 03:57 01/22/18 11:01 01/22/18 11:01 01/22/18 11:01 - Laboratory Laboratory results interpreted by me: 01/22/18 04:50 Sodium 145.7 H Glucose 115 H Direct Bilirubin 0.7 H Discharge <TY GUZMAN - Last Filed: 01/22/18 06:57> <AMINATA SAENZ - Last Filed: 01/22/18 14:19> - Discharge Clinical Impression: Chest pain Qualifiers: Chest pain type: other chest pain Qualified Code(s): R07.89 - Other chest pain Condition: Stable Disposition: HOME, SELF-CARE Instructions: Chest Pain of Unclear Cause ([facility]) Additional Instructions: You were seen today for chest pain. The exact cause of your pain is unclear. However, based on your cardiac enzyme testing, chest x-ray, and EKG it does not appear that it is from an immediately life-threatening cause at this time. Although your testing here is normal is critical that you follow-up with your primary care physician for continued evaluation of this chest pain and possible stress testing. I recommended you see your physician within the next 24-48 hours to be evaluated for consideration of a stress test. Please return to emergency department immediately if you have worsening of your chest pain, shortness of breath, vomiting, become unable to exert yourself due to pain or difficulty breathing, you pass out, or have any pain that radiates into your arms, jaw, or back. Please also return if you have any additional symptoms that are concerning to you. Return immediately for any new or worsening symptoms. Follow up with primary care provider, call tomorrow to make followup appointment. Forms: Return to Work Referrals: DEJUAN DUARTE MD [ACTIVE STAFF] - Follow up tomorrow SWEETIE KRAUS MD [COMMUNITY BASED STAFF] - Follow up in 3-5 days
[2018-01-22 05:15] LABS: ABSOLUTE EOSINOPHILS # (AUTO) 0.2 10^3/uL (0.0-0.6); ABSOLUTE LYMPHOCYTES (AUTO) 1.7 10^3/uL (0.5-4.7); ABSOLUTE MONOCYTES (AUTO) 0.4 10^3/uL (0.1-1.4); BASOPHILS % (AUTO) 0.8 % (0-2); EOSINOPHILS % (AUTO) 3.5 % (0-6); HEMATOCRIT 36.2 % (36.0-47.0); HEMOGLOBIN 12.3 g/dL (12.0-15.5); LYMPHOCYTES % (AUTO) 32.2 % (13-45); MEAN CORPUSCULAR HEMOGLOBIN 30.8 pg (27.0-33.4); MEAN CORPUSCULAR HGB CONC 34.1 g/dL (32.0-36.0); MEAN CORPUSCULAR VOLUME 90 fl (80-97); MONOCYTES % (AUTO) 8.3 % (3-13); PLATELET COUNT 336 10^3/uL (150-450); RED BLOOD COUNT 4.01 10^6/uL (3.72-5.28); RED CELL DISTRIBUTION WIDTH 13.1 % (11.5-14.0); SEGMENTED NEUTROPHILS % (AUTO) 55.2 % (42-78); TOTAL CELLS COUNTED % (AUTO) 100 %; WHITE BLOOD COUNT 5.4 10^3/uL (4.0-10.5)
--- NOTE | 2018-01-22 05:35 | RADIOLOGY REPORT (SQ) ---
EXAM DESCRIPTION: XR CHEST 1 VIEW COMPLETED DATE/TME: 01/22/2018 04:33 CLINICAL HISTORY: 52 years Female, chest pain COMPARISON: 2.8.18 NUMBER OF VIEWS/TECHNIQUE: 1/AP FINDINGS: Adequate lung volume, clear parenchyma, normal cardiac silhouette, and intact bony thorax. IMPRESSION: No acute cardiopulmonary findings.
[2018-01-22 05:56] LABS: ALANINE AMINOTRANSFERASE 20 U/L (9-52); ALBUMIN 3.7 g/dL (3.5-5.0); ALKALINE PHOSPHATASE 49 U/L (38-126); ANION GAP 10 (5-19); ASPARTATE AMINO TRANSFERASE 19 U/L (14-36); BILIRUBIN,DIRECT 0.7 mg/dL (0.0-0.4); BLOOD UREA NITROGEN 14 mg/dL (7-20); CALCIUM 9.2 mg/dL (8.4-10.2); CARBON DIOXIDE 29 mmol/L (22-30); CHLORIDE 107 mmol/L (98-107); CREATINE KINASE 120 U/L (30-135); GLUCOSE 115 mg/dL (75-110); POTASSIUM 3.8 mmol/L (3.6-5.0); SODIUM 145.7 mmol/L (137-145); TOTAL PROTEIN 6.9 g/dL (6.3-8.2)
[2018-01-22 06:04] LABS: CREATINE KINASE MB 0.51 ng/mL (<4.55)
[2018-01-22 06:10] LABS: TROPONIN I < 0.012 ng/mL
--- NOTE | 2018-01-22 06:52 | EKG REPORT ---
SEVERITY:- BORDERLINE ECG - SINUS RHYTHM PROBABLE LEFT ATRIAL ABNORMALITY BORDERLINE T ABNORMALITIES, ANT-LAT LEADS : Confirmed by: Modesto Conway 22-Jan-2018 06:51:46
[2018-01-22 14:29] VITALS: BP 164/79
== END 2018-01-22 14:29 | disposition home or self-care (01) ==
LOC: ER 03:53
DX: R07.89 Other chest pain (principal); I10 Essential (primary) hypertension
CPT/HCPCS: 36415; 71045; 80053; 82550; 82553; 84484; 85025; 93005; 93010; 99285

== ENCOUNTER 2018-08-16 05:21 | Emergency (ER) | payer BC ==
[2018-08-16] MEDS ORDERED: IPRATROPIUM/ALBUTEROL 0.5-2.5 MG/3 ML AMPUL NEB ONE (06:47)
[2018-08-16] MEDS ORDERED: PREDNISONE 20 MG TABLET PO ONE (06:47)
[2018-08-16 06:52] LABS: ABSOLUTE EOSINOPHILS # (AUTO) 0.2 10^3/uL (0.0-0.6); ABSOLUTE LYMPHOCYTES (AUTO) 2.5 10^3/uL (0.5-4.7); ABSOLUTE MONOCYTES (AUTO) 0.6 10^3/uL (0.1-1.4); ABSOLUTE NEUT (AUTO) 3.1 10^3/uL (1.7-8.2); BASOPHILS % (AUTO) 0.6 % (0-2); EOSINOPHILS % (AUTO) 3.3 % (0-6); HEMOGLOBIN 12.9 g/dL (12.0-15.5); LYMPHOCYTES % (AUTO) 39.2 % (13-45); MEAN CORPUSCULAR HEMOGLOBIN 30.7 pg (27.0-33.4); MEAN CORPUSCULAR HGB CONC 33.8 g/dL (32.0-36.0); MEAN CORPUSCULAR VOLUME 91 fl (80-97); MONOCYTES % (AUTO) 9.1 % (3-13); PLATELET COUNT 335 10^3/uL (150-450); RED BLOOD COUNT 4.19 10^6/uL (3.72-5.28); RED CELL DISTRIBUTION WIDTH 13.5 % (11.5-14.0); SEGMENTED NEUTROPHILS % (AUTO) 47.8 % (42-78); TOTAL CELLS COUNTED % (AUTO) 100 %; WHITE BLOOD COUNT 6.4 10^3/uL (4.0-10.5)
[2018-08-16 06:59] LABS: ALANINE AMINOTRANSFERASE 17 U/L (9-52); ALKALINE PHOSPHATASE 56 U/L (38-126); ANION GAP 9 (5-19); ASPARTATE AMINO TRANSFERASE 22 U/L (14-36); BILIRUBIN,DIRECT 0.7 mg/dL (0.0-0.4); BILIRUBIN,TOTAL 1.3 mg/dL (0.2-1.3); BLOOD UREA NITROGEN 10 mg/dL (7-20); CALCIUM 9.6 mg/dL (8.4-10.2); CARBON DIOXIDE 30 mmol/L (22-30); CHLORIDE 103 mmol/L (98-107); CREATINE KINASE 117 U/L (30-135); GLUCOSE 115 mg/dL (75-110); POTASSIUM 3.4 mmol/L (3.6-5.0); SODIUM 142.4 mmol/L (137-145); TOTAL PROTEIN 7.3 g/dL (6.3-8.2)
[2018-08-16 07:11] LABS: CREATINE KINASE MB 0.43 ng/mL (<4.55)
[2018-08-16 07:13] LABS: TROPONIN I < 0.012 ng/mL
[2018-08-16] MEDS ORDERED: NORMAL SALINE 1000 ML 1,000 ML IV ONE (07:24)
[2018-08-16] MEDS ORDERED: METHYLPREDNISOLONE INJ 125 MG/2 ML SDV IV ONE (07:33)
[2018-08-16] MEDS ORDERED: DIPHENHYDRAMINE HCL 50 MG/ML VIAL IV ONE (07:33)
--- NOTE | 2018-08-16 07:52 | RADIOLOGY REPORT (SQ) ---
EXAM DESCRIPTION: XR CHEST 1 VIEW COMPLETED DATE/TME: 08/16/2018 06:47 CLINICAL HISTORY: 53 years, Female, Short of breath COMPARISON: 07/27/2015 NUMBER OF VIEWS: One TECHNIQUE: AP view of the chest LIMITATIONS: None. FINDINGS: The lungs are clear. The heart is normal in size. There is no pneumothorax or pleural effusion. The bones are unremarkable. IMPRESSION: No acute cardiopulmonary abnormality copyright 2010 [employer]- All Rights Reserved
--- NOTE | 2018-08-16 08:35 | RADIOLOGY REPORT (SQ) ---
EXAM DESCRIPTION: CTA CHEST COMPLETED DATE/TIME: 08/16/2018 8:13 am REASON FOR STUDY: SOB, elevated D-dimer COMPARISON: CT angio chest 07/27/2015, 04/15/2011 Chest films 08/16/2018, 01/22/2018, and 07/27/2017 TECHNIQUE: CT scan of the chest performed using helical scanning technique with dynamic intravenous contrast injection. Images reviewed with lung, soft tissue and bone windows. Reconstructed coronal and sagittal MPR images reviewed. Additional 3 dimensional post-processing performed to develop Maximal Intensity Projection images (ID P). All images stored on PACS. All CT scanners at this facility use dose modulation, iterative reconstruction, and/or weight based d osing when appropriate to reduce radiation dose to as low as reasonably achievable (ALARA). [facility]: Dose Right [facility]: CareDose [facility]: Dose Right [facility]: Teradose 4D [facility]: Sekal AS CONTRAST TYPE AND DOSE: contrast/concentration: Isovue 350.00 mg/ml; Total Contrast Delivered: 81.0 ml; Total Saline Delivered: 80.0 ml Contrast bolus optimized for the pulmonary arteries and aorta. RENAL FUNCTION: GFR > 60. RADIATION DOSE: CT Rad equipment meets quality standard of care and radiation dose reduction techniq ues were employed. CTDIvol: 19.8 - 28.5 mGy. DLP: 963 mGy-cm. . LIMITATIONS: None. FINDINGS: LUNGS AND PLEURA: No masses, infiltrates, or pneumothorax. No pleural effusions or pleura l calcifications. AORTA AND GREAT VESSELS: No aneurysm or dissection of the thoracic aorta. HEART: No pericardial effusion. No significant coronary artery calcifications. PULMONARY ARTERIES: No emboli visualized in the main pulmonary arteries or the segmental branches. HILAR AND MEDIASTINAL STRUCTURES: No identified masses or abnormal nodes. HARDWARE: None in the chest. UPPER ABDOMEN: No significant findings. Limited exam. THYROID AND OTHER SOFT TISSUES: No masses. No adenopathy. BONES: No acute or significant finding. 3D MIPS: Confirm above findings. OTHER: No other significant finding. IMPRESSION: NORMAL CTA OF THE CHEST. NO PULMONARY EMBOLI. COMMENT: Quality ID # [id number]: Final reports with documentation of one or more dose reduction techniques (e.g., Automated exposure control, adjustment of the mA and/or kV according to patient size, use of iterative reconstruction technique) TECHNICAL DOCUMENTATION: JOB ID: [id number]- All Rights Reserved Reading location - IP/workstation name: [email or web address]
[2018-08-16 08:58] VITALS: BP 143/80
--- NOTE | 2018-08-16 11:50 | ER Document Report ---
Entered by PRISCILLA GATICA SCRIBE 08/16/18 0705 Acting as scribe for:AKOSUA MOORE MD ED General - General Chief Complaint: Shortness Of Breath Stated Complaint: SHORTNESS OF BREATH,WHEEZING Time Seen by Provider: 08/16/18 06:39 Primary Care Provider: JONES JONES PA-C [Primary Care Provider] - Follow up as needed Mode of Arrival: Ambulatory Information source: Patient Notes: Patient is a 53-year-old female presenting to the emergency department complaining of shortness of breath onset 2 days ago. Patient states that she normally has shortness of breath with weather and seasonal changes and is normally able to use her inhaler to relieve her symptoms. She states 2 days ago she began to have shortness of breath but her inhaler has not been helping. She states her shortness of breath is occasionally exacerbated on exertion. Patient states she currently feels somewhat short of breath. She denies any coughs. TRAVEL OUTSIDE OF THE [place] IN LAST 30 DAYS: No - Related Data Allergies/Adverse Reactions: No Known Allergies Allergy (Verified 08/16/18 08:02) Past Medical History - General Information source: Patient - Social History Smoking Status: Never Smoker Chew tobacco use (# tins/day): No Frequency of alcohol use: None Drug Abuse: None Family History: Reviewed & Not Pertinent Patient has suicidal ideation: No Patient has homicidal ideation: No - Past Medical History Cardiac Medical History: Reports: Hx Hypertension Pulmonary Medical History: Reports: Hx Asthma - Immunizations Hx Diphtheria, Pertussis, Tetanus Vaccination: Yes Review of Systems - Review of Systems Constitutional: No symptoms reported EENT: No symptoms reported Cardiovascular: No symptoms reported Respiratory: See HPI, Short of breath Gastrointestinal: No symptoms reported Genitourinary: No symptoms reported Female Genitourinary: No symptoms reported Musculoskeletal: No symptoms reported Skin: No symptoms reported Hematologic/Lymphatic: No symptoms reported Neurological/Psychological: No symptoms reported -: Yes All other systems reviewed and negative Physical Exam - Vital signs Vitals: Temp Pulse Resp BP Pulse Ox 98.5 F 86 18 164/85 H 98 08/16/18 05:35 08/16/18 05:35 08/16/18 05:35 08/16/18 05:35 08/16/18 05:35 - Notes Notes: GENERAL: Alert, interacts well. No acute distress. HEAD: Normocephalic, atraumatic. EYES: Pupils equal, round, and reactive to light. Extraocular movements intact. ENT: Oral mucosa moist, tongue midline. NECK: Full range of motion. Supple. Trachea midline. LUNGS: Wheezes on forced cough. No rales or rhonchi. No respiratory distress. HEART: Regular rate and rhythm. No murmurs, gallops, or rubs. ABDOMEN: Soft, non-tender. Non-distended. Bowel sounds present in all 4 quadrants. No guarding, rigidity, or rebound. EXTREMITIES: Moves all 4 extremities spontaneously. NEUROLOGICAL: Alert and oriented x3. Normal speech. PSYCH: Normal affect, normal mood. SKIN: Warm, dry, normal turgor. No rashes or lesions noted. Course - Re-evaluation Re-evalutation: 08/16/18 08:39 The patient reported that her breathing did feel better after the DuoNeb treatment. The CTA of the chest was unremarkable. - Vital Signs Vital signs: Temp Pulse Resp BP Pulse Ox 98.5 F 86 19 145/81 H 98 08/16/18 05:35 08/16/18 05:35 08/16/18 07:03 08/16/18 07:03 08/16/18 07:03 - Laboratory Result Diagrams: 08/16/18 05:45 08/16/18 05:45 Laboratory results interpreted by me: 08/16/18 08/16/18 05:45 06:54 D-Dimer 0.82 H Potassium 3.4 L Glucose 115 H Direct Bilirubin 0.7 H - Diagnostic Test Radiology reviewed: Reports reviewed - CTA of the chest is normal. - EKG Interpretation by Nd EKG shows normal: Sinus rhythm, [place], Intervals, QRS Complexes. abnormal: ST-T Waves - Borderline anterolateral T abnormalities Rate: Normal - 84 Rhythm: NSR P Waves: LAE When compared to previous EKG there are: No significant change Discharge - Discharge Clinical Impression: Asthma Qualifiers: Asthma severity: mild Asthma persistence: persistent Asthma complication type: uncomplicated Qualified Code(s): J45.30 - Mild persistent asthma, uncomplicated Condition: Stable Disposition: HOME, SELF-CARE Additional Instructions: The CT scan of your chest that looked at your lungs and the blood vessels going through the lungs was all normal. The remainder of your evaluation including chest x-ray, and lab work, and EKG were all normal. You report that your breathing did feel better after the breathing treatment. You are probably experiencing mild asthma and should use your inhaler regularly to treat your symptoms. You declined the offer of steroids to help with your asthma symptoms. Follow-up with your primary care provider if your inhaler does not continue to manage her symptoms of feeling short of breath. RETURN TO THE EMERGENCY ROOM IF ANY NEW OR WORSENING SYMPTOMS. Prescriptions: Albuterol Sulfate [Proair Hfa Inhalation Aerosol 8.5 gm Mdi] 2 puff IH ASDIR PRN #1 mdi PRN Reason: Forms: Return to Work Referrals: JONES JONES PA-C [Primary Care Provider] - Follow up as needed Scribe Attestation: 08/16/18 07:24 I personally performed the services described in the documentation, reviewed and edited the documentation which was dictated to the scribe in my presence, and it accurately records my words and actions. I personally performed the services described in the documentation, reviewed and edited the documentation which was dictated to the scribe in my presence, and it accurately records my words and actions.
--- NOTE | 2018-08-16 22:16 | EKG REPORT ---
SEVERITY:- BORDERLINE ECG - SINUS RHYTHM PROBABLE LEFT ATRIAL ABNORMALITY BORDERLINE T ABNORMALITIES, ANT-LAT LEADS : Confirmed by: Modesto Conway 16-Aug-2018 22:16:35
== END 2018-08-16 09:04 | disposition home or self-care (01) ==
LOC: ER 05:21
DX: J45.30 Mild persistent asthma, uncomplicated (principal); R06.02 Shortness of breath; I10 Essential (primary) hypertension
CPT/HCPCS: 93005; 94640; 99285; 96361; 96374; 36415; 82553; 82550; 85025; 80053; 84484; 85379; 71045; 71275; 93010; J1200; J7030; J7620

== ENCOUNTER 2018-11-23 00:34 | Emergency (ER) | payer BC ==
[2018-11-23] MEDS ORDERED: ASPIRIN 81 MG TABLET, CHEWABLE PO ONE (01:42)
--- NOTE | 2018-11-23 01:45 | ER Document Report ---
ED Medical Screen (RME) - General Chief Complaint: Chest Tightness Stated Complaint: CHEST TIGHTNESS,SHORTNESS OF BREATH Time Seen by Provider: 11/23/18 01:41 Primary Care Provider: JONES JONES PA-C [Primary Care Provider] - Follow up as needed Mode of Arrival: Ambulatory Information source: Patient Notes: 53-year-old female presented to ED for complaint of chest pain with cough since Monday. She states she took some TheraFlu and and used her albuterol nebulizer and felt a little better. She states that at work they sprayed for flies on Monday and it aggravated her cough again. States she went to the doctor on they gave her some Tessalon Perles for the cough. She states she took 1 of them and then could not stop coughing. She states she does not have any more nebulizer medication so she came to the emergency room to be examined. She states she does have a history of asthma and high blood pressure and takes hydrochlorothiazide for her blood pressure. She does not have any history of any heart problems. Patient denies smoking drinking or doing any drugs. Patient is in no acute distress when I examined her. Lungs were clear there was no wheezing auscultated. I have greeted and performed a rapid initial assessment of this patient. A comprehensive ED assessment and evaluation of the patient, analysis of test results and completion of medical decision making process will be conducted by an additional ED providers. Dictation of this chart was performed using voice recognition software; therefore, there may be some unintended grammatical errors. TRAVEL OUTSIDE OF THE [place] IN LAST 30 DAYS: No - Related Data Allergies/Adverse Reactions: No Known Allergies Allergy (Verified 08/16/18 08:02) Past Medical History - Past Medical History Cardiac Medical History: Reports: Hx Hypertension Pulmonary Medical History: Reports: Hx Asthma Renal/ Medical History: Denies: Hx Peritoneal Dialysis - Immunizations Hx Diphtheria, Pertussis, Tetanus Vaccination: Yes Physical Exam - Vital signs Vitals: Temp Pulse Resp BP Pulse Ox 98.1 F 80 16 147/73 H 96 11/23/18 00:51 11/23/18 00:51 11/23/18 00:51 11/23/18 00:51 11/23/18 00:51 Course - Vital Signs Vital signs: Temp Pulse Resp BP Pulse Ox 98.1 F 80 16 147/73 H 96 11/23/18 00:51 11/23/18 00:51 11/23/18 00:51 11/23/18 00:51 11/23/18 00:51 Doctor's Discharge - Discharge Referrals: JONES JONES, SALOME [Primary Care Provider] - Follow up as needed
[2018-11-23 02:26] LABS: ABSOLUTE BASOPHILS # (AUTO) 0.1 10^3/uL (0.0-0.2); ABSOLUTE EOSINOPHILS # (AUTO) 0.2 10^3/uL (0.0-0.6); ABSOLUTE LYMPHOCYTES (AUTO) 2.5 10^3/uL (0.5-4.7); ABSOLUTE MONOCYTES (AUTO) 0.4 10^3/uL (0.1-1.4); ABSOLUTE NEUT (AUTO) 3.3 10^3/uL (1.7-8.2); BASOPHILS % (AUTO) 1.1 % (0-2); EOSINOPHILS % (AUTO) 3.6 % (0-6); HEMATOCRIT 39.3 % (36.0-47.0); HEMOGLOBIN 13.1 g/dL (12.0-15.5); LYMPHOCYTES % (AUTO) 37.8 % (13-45); MEAN CORPUSCULAR HEMOGLOBIN 30.2 pg (27.0-33.4); MEAN CORPUSCULAR HGB CONC 33.4 g/dL (32.0-36.0); MEAN CORPUSCULAR VOLUME 91 fl (80-97); MONOCYTES % (AUTO) 6.7 % (3-13); PLATELET COUNT 346 10^3/uL (150-450); RED BLOOD COUNT 4.34 10^6/uL (3.72-5.28); RED CELL DISTRIBUTION WIDTH 12.9 % (11.5-14.0); SEGMENTED NEUTROPHILS % (AUTO) 50.8 % (42-78); TOTAL CELLS COUNTED % (AUTO) 100 %; WHITE BLOOD COUNT 6.6 10^3/uL (4.0-10.5)
[2018-11-23 02:40] LABS: ALANINE AMINOTRANSFERASE 14 U/L (9-52); ALBUMIN 4.2 g/dL (3.5-5.0); ALKALINE PHOSPHATASE 57 U/L (38-126); ANION GAP 10 (5-19); ASPARTATE AMINO TRANSFERASE 23 U/L (14-36); BILIRUBIN,DIRECT 0.9 mg/dL (0.0-0.4); BILIRUBIN,TOTAL 1.2 mg/dL (0.2-1.3); BLOOD UREA NITROGEN 17 mg/dL (7-20); CALCIUM 9.5 mg/dL (8.4-10.2); CARBON DIOXIDE 32 mmol/L (22-30); CHLORIDE 100 mmol/L (98-107); GLUCOSE 115 mg/dL (75-110); POTASSIUM 3.7 mmol/L (3.6-5.0); SODIUM 142.2 mmol/L (137-145); TOTAL PROTEIN 7.7 g/dL (6.3-8.2)
--- NOTE | 2018-11-23 02:43 | RADIOLOGY REPORT (SQ) ---
EXAM DESCRIPTION: [employer]: XR CHEST 2 VIEWS Views: 2 CLINICAL HISTORY: 53 years Female, Chest tightness COMPARISON: 08/16/2018 FINDINGS: The lungs are clear. No pneumothorax or significant pleural effusion. Cardiomediastinal silhouette is within normal limits. Bony structures are unremarkable for age. IMPRESSION: 1. No acute cardiothoracic abnormality.
[2018-11-23 02:59] LABS: CREATINE KINASE MB 0.67 ng/mL (<4.55)
[2018-11-23 03:01] LABS: TROPONIN I < 0.012 ng/mL
[2018-11-23] MEDS ORDERED: DEXAMETHASONE SOD PHOS INJ 10 MG/1 ML VIAL IV ONE (04:13)
[2018-11-23] MEDS ORDERED: DEXAMETHASONE SOD PHOS INJ 10 MG/1 ML VIAL IM ONE (04:23)
--- NOTE | 2018-11-23 04:54 | ER Document Report ---
ED General - General Chief Complaint: Chest Tightness Stated Complaint: CHEST TIGHTNESS,SHORTNESS OF BREATH Time Seen by Provider: 11/23/18 01:41 Primary Care Provider: JONES JONES PA-C [ALLIED HEALTH PROFESSIONAL] - Follow up as needed Mode of Arrival: Ambulatory TRAVEL OUTSIDE OF THE [place] IN LAST 30 DAYS: No - HPI Notes: Patient is a 53-year-old female presents emergency department for evaluation of chest tightness and cough. She states she started to develop a cough over last weekend. On Monday they "sprayed" for some sort of insects. She states she always gets a worsened cough after that. She has seen her primary care provider who wrote her for some Tessalon Perles. She states she feels a tightness across her chest that is changed with coughing. She states her cough is intermittently productive. No fevers or chills. No nausea or vomiting. Eating and drinking normally. She states she has had some relief with Tylenol Cold and flu as well. She also has albuterol at home, which has been helpful intermittently. - Related Data Allergies/Adverse Reactions: No Known Allergies Allergy (Verified 08/16/18 08:02) Past Medical History - General Information source: Patient - Social History Smoking Status: Never Smoker Chew tobacco use (# tins/day): No Frequency of alcohol use: None Drug Abuse: None Family History: Reviewed & Not Pertinent Patient has suicidal ideation: No Patient has homicidal ideation: No - Past Medical History Cardiac Medical History: Reports: Hx Hypertension Pulmonary Medical History: Reports: Hx Asthma Renal/ Medical History: Denies: Hx Peritoneal Dialysis - Immunizations Hx Diphtheria, Pertussis, Tetanus Vaccination: Yes Review of Systems - Review of Systems Constitutional: No symptoms reported EENT: No symptoms reported Cardiovascular: See HPI Respiratory: See HPI Gastrointestinal: No symptoms reported Genitourinary: No symptoms reported Musculoskeletal: No symptoms reported Skin: No symptoms reported Neurological/Psychological: No symptoms reported Physical Exam - Vital signs Vitals: Temp Pulse Resp BP Pulse Ox 98.1 F 80 16 147/73 H 96 11/23/18 00:51 11/23/18 00:51 11/23/18 00:51 11/23/18 00:51 11/23/18 00:51 - Notes Notes: Vital signs reviewed, please refer to chart. Head is normocephalic, atraumatic. Pupils equal round, reactive to light. Neck is supple without meningismus. Heart is regular rate and rhythm. Lungs are clear to auscultation bilaterally. Abdomen is soft, nontender, normoactive bowel sounds throughout. Extremities without cyanosis, clubbing. Posterior calves are nontender. Peripheral pulses are equal. Skin is warm and dry. Patient is awake, alert, neurological exam is nonfocal. Course - Re-evaluation Re-evalutation: 11/23/18 04:50 Patient presents emergency department for evaluation. She was initially evaluated through triage and had laboratory investigations and imaging place. At this point I do not have any strong suspicion for cardiac etiology. She seems to be coughing. At the time of my exam she has no wheezing. She is not a diabetic. I will get and treated with some Decadron. 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 She Rahul has albuterol at home. She Rahul is to Perles at home. We will send her home to follow-up with primary care. She is to return to the emergency department for worsening or new concerning symptoms of any sort peer - Vital Signs Vital signs: Temp Pulse Resp BP Pulse Ox 98.1 F 80 16 147/73 H 96 11/23/18 00:51 11/23/18 00:51 11/23/18 00:51 11/23/18 00:51 11/23/18 00:51 - Laboratory Result Diagrams: 11/23/18 02:11 11/23/18 02:11 Laboratory results interpreted by me: 11/23/18 02:11 Carbon Dioxide 32 H Glucose 115 H Direct Bilirubin 0.9 H - Diagnostic Test Radiology reviewed: Reports reviewed Radiology results interpreted by me: 11/23/18 04:51 Chest X-Ray 11/23/18 01:42 IMPRESSION: 1. No acute cardiothoracic abnormality. - EKG Interpretation by Me Additional EKG results interpreted by me: 11/23/18 04:51 Sinus mechanism with a rate of 83 bpm. Normal axis and intervals, no acute ST changes concerning for ischemia or infarction. No significant change when compared to prior study of 08/16/2018. Discharge - Discharge Clinical Impression: Cough Condition: Stable Disposition: HOME, SELF-CARE Instructions: Ast[facility] ([facility]) Additional Instructions: Continue to use your inhaler and Tessalon Perles as needed. Follow-up with your primary care physician next week. Return to the emergency department with worsening or new concerning symptoms of any sort. Referrals: JONES JONES PA-C [ALLIED HEALTH PROFESSIONAL] - Follow up as needed
[2018-11-23 05:58] VITALS: BP 118/63
--- NOTE | 2018-11-23 07:18 | EKG REPORT ---
SEVERITY:- BORDERLINE ECG - SINUS RHYTHM PROBABLE LEFT ATRIAL ABNORMALITY BORDERLINE T ABNORMALITIES, ANT-LAT LEADS : Confirmed by: Joselito Perez MD 23-Nov-2018 07:17:29
== END 2018-11-23 05:59 | disposition home or self-care (01) ==
LOC: ER 00:34
DX: R05 Cough (principal); J45.909 Unspecified asthma, uncomplicated; R07.89 Other chest pain; Z77.098 Contact with and (suspected) exposure to other hazardous, chiefly nonmedicinal, chemicals; I10 Essential (primary) hypertension
CPT/HCPCS: 93005; 99284; 96372; 36415; 82553; 85025; 80053; 84484; 71046; 93010; J1100

== ENCOUNTER → 2018-12-12 | Outpatient (CLI) | payer BC ==
--- NOTE | 2018-12-12 12:49 | WOMENS IMAGING REPORT ---
EXAM DESCRIPTION: 3D SCREENING MAMMO BILAT COMPLETED DATE/TIME: 12/12/2018 9:36 am REASON FOR STUDY: Z12.31 ROUTINE 3D BILATERAL SCREENING Z12.31 ENCNTR SCREEN MAMMOGRAM FOR MALIGNAN T NEOPLASM OF GARRETT COMPARISON: 11/30/2016 and 11/17/2010. EXAM PARAMETERS: Views: Standard craniocaudal and mediolateral oblique views of each breast recorded using digital acquisition and breast tomosynthesis. Read with the assistance of CAD. .FORMERLY [facility] - [employer] Property Version 9.2 LIMITATIONS: None. FINDINGS: No suspicious masses, suspicious calcifications or architectural distortion. No areas of c oncern. IMPRESSION: NEGATIVE MAMMOGRAM. BIRADS 1. BREAST DENSITY: a. The breasts are almost entirely fatty. BIRAD: ASSESSMENT: 1 NEGATIVE RECOMMENDATION: ROUTINE SCREENING COMMENT: The patient has been notified of the results by letter per MQSA requirements. Additional no tification policies are in place for contacting patient with suspicious or incomplete findings. Quality ID #[id number]: The [employer] recommends an annual screening mammogram for women aged 40 years or over. This facility utilizes a reminder system to ensure that all patients receive reminder letters, and/or direct phone calls for appointments. This includes reminders for routine scr eening mammograms, diagnostic mammograms, or other Breast Imaging Interventions when appropriate. Th is patient will be placed in the appropriate reminder system. TECHNICAL DOCUMENTATION: FINDING NUMBER: (1) ASSESSMENT: (1) JOB ID: [id number] 1960 [employer]- All Rights Reserved Reading location - IP/workstation name: [email or web address]
== END ==
LOC: WI 08:47
PROVIDERS: ATTEND Physician Assistant
DX: Z12.31 Encounter for screening mammogram for malignant neoplasm of breast (principal)
CPT/HCPCS: 77063; 77067

== ENCOUNTER 2019-01-12 14:03 | Emergency (ER) | payer BC ==
--- NOTE | 2019-01-12 14:43 | ER Document Report ---
ED Medical Screen (RME) - General Chief Complaint: Leg Pain Stated Complaint: LEG CRAMPS Time Seen by Provider: 01/12/19 14:38 Primary Care Provider: JOLENE HOUSTON PA-C [Primary Care Provider] - Follow up as needed Mode of Arrival: Ambulatory Information source: Patient Notes: 53-year-old female presented to ED for complaint of leg cramps in both legs front and back mostly in the front. She states she has a history of sciatica but this is not her sciatica pain that salgado this is cramping. She states she has not been noted in the heat any extended period of time. Patient is alert oriented respirations regular and unlabored speaking in full sentences walks with even steady gait. She does have a history of asthma and ganglion cyst removal from her left hand. TRAVEL OUTSIDE OF THE [place] IN LAST 30 DAYS: No - HPI Onset: Yesterday Onset/Duration: Intermittent Quality of pain: Cramping Severity: Moderate Pain Level: 3 Associated Symptoms: Other Exacerbated by: Walking - Muscle cramping Relieved by: Denies Similar symptoms previously: Yes Recently seen / treated by doctor: No - Related Data Smoking: Non-smoker Frequency of alcohol use: None Drug Abuse: None Allergies/Adverse Reactions: No Known Allergies Allergy (Verified 01/12/19 14:05) Past Medical History - General Information source: Patient - Social History Cigarette use (# per day): No Lives with: Family Family history: Reviewed & Not Pertinent - Past Medical History Cardiac Medical History: Reports: Hx Hypertension Pulmonary Medical History: Reports: Hx Asthma EENT Medical History: Reports: None Neurological Medical History: Reports: None Endocrine Medical History: Reports: None Renal/ Medical History: Reports: None Malignancy Medical History: Reports: None GI Medical History: Reports: None Musculoskeltal Medical History: Reports Hx Arthritis, Reports Hx Musculoskeletal Deformity, Reports Hx Musculoskeletal Trauma Skin Medical History: Reports None Psychiatric Medical History: Reports: None Traumatic Medical History: Reports: None Infectious Medical History: Reports: None Past Surgical History: Reports: Hx Orthopedic Surgery - Ganglion cyst left hand - Immunizations Hx Diphtheria, Pertussis, Tetanus Vaccination: Yes Review of Systems - Review of Systems Constitutional: No symptoms reported EENT: No symptoms reported Cardiovascular: No symptoms reported Respiratory: No symptoms reported Gastrointestinal: No symptoms reported Genitourinary: No symptoms reported Female Genitourinary: No symptoms reported Musculoskeletal: Other - Leg cramps Skin: No symptoms reported Hematologic/Lymphatic: No symptoms reported Neurological/Psychological: No symptoms reported -: Yes All other systems reviewed and negative Physical Exam - Vital signs Vitals: Temp Pulse Resp BP Pulse Ox 97.9 F 98 20 138/63 H 96 01/12/19 14:08 01/12/19 14:08 01/12/19 14:08 01/12/19 14:08 01/12/19 14:08 Interpretation: Normal - General General appearance: Appears well, Alert - HEENT Head: Normocephalic, Atraumatic Eyes: Normal Pupils: PERRL - Respiratory Respiratory status: No respiratory distress Chest status: Nontender Breath sounds: Normal Chest palpation: Normal - Cardiovascular Rhythm: Regular Heart sounds: Normal auscultation Murmur: No - Abdominal Inspection: Normal Distension: No distension Bowel sounds: Normal Tenderness: Nontender Organomegaly: No organomegaly - Back Back: Normal, Nontender - Extremities General upper extremity: Normal inspection, Nontender, Normal color, Normal ROM, Normal temperature General lower extremity: Normal inspection, Nontender, Normal color, Normal ROM, Normal temperature, Normal weight bearing. No: Vasquez's sign - Neurological Neuro grossly intact: Yes Cognition: Normal Orientation: AAOx4 [place] Coma Scale Eye Opening: Spontaneous [place] Coma Scale Verbal: Oriented [place] Coma Scale Motor: Obeys Commands [place] Coma Scale Total: 15 Speech: Normal Motor strength normal: LUE, RUE, LLE, RLE Sensory: Normal - Psychological Associated symptoms: Normal affect, Normal mood - Skin Skin Temperature: Warm Skin Moisture: Dry Skin Color: Normal Course - Re-evaluation Re-evalutation: 01/12/19 16:35 Discussed lab results with Dr. Leonard and with patient. He agreed patient could go home as long as she followed up with her primary care doctor. Patient was able to verbalize understanding and agreement with this treatment plan. Patient has been treated with Toradol IV and a liter of fluids. She states after the Toradol and fluids she feels much better and is ready to go home. She does have a long history of sciatica with low back pain. Her pain is in the front of her legs to the front of her thighs. Patient verbalized understanding and agreement with her discharge plans and will be discharged home. - Vital Signs Vital signs: Temp Pulse Resp BP Pulse Ox 98.9 F 77 16 125/58 L 100 01/12/19 16:45 01/12/19 16:45 01/12/19 16:45 01/12/19 16:45 01/12/19 16:45 - Laboratory Result Diagrams: 01/12/19 14:55 Laboratory results interpreted by me: 01/12/19 01/12/19 14:40 14:55 Carbon Dioxide 31 H Est GFR (Non-Af Amer) 57 L Direct Bilirubin 1.0 H Creatine Kinase 190 H Urine Urobilinogen 2.0 H Doctor's Discharge - Discharge Clinical Impression: Low back pain with sciatica Qualifiers: Chronicity: chronic Back pain laterality: bilateral Sciatica laterality: bilateral sciatica Qualified Code(s): M54.42 - Lumbago with sciatica, left side Condition: Stable Disposition: HOME, SELF-CARE Additional Instructions: LOW BACK PAIN: Three out of every four people will have an episode of disabling back pain during their lifetime. Most commonly the pain is due to straining of the muscles and ligaments in the low back. Usual treatment includes: (1) Rest on a firm surface. Avoid lying on your stomach. (2) Ice pack the painful area. After a few days, gentle heat may be used intermittently to relax the area, or ice packs can be continued. (3) Medication may be needed -- muscle relaxers and antiinflammatory medicines are commonly used. (4) As the back improves, exercises are prescribed to strengthen the back and abdominal muscles. Your doctor will advise you on the proper care for your back at each stage in your recovery. You may be better in a few days -- or healing may take several weeks. If new symptoms of a "herniated disc" (radiation of pain, numbness, or tingling down the back of the leg or weakness in the leg) occur, you should be re-examined. Further testing may be necessary. Sciatica Your symptoms suggest "sciatica." The pain of sciatica typically radiates down the leg. Numbness in the foot or calf may also occur. Sciatica is caused by irritation of the sciatic nerve or its branches. The irritation can be due to a herniated disk in the spine, swelling and inflammation in the muscles surrounding the sciatic nerve, or direct injury of the nerve itself. Most cases of sciatica will resolve with medical treatment. Bed rest is usually recommended initially. Surgery is only necessary when the condition will not improve with rest and antiinflammatory medication. Muscle relaxers are often given if muscle soreness is present. A CAT scan of the back may be performed if a herniated disk is suspected. Re-examination is necessary if you develop increasing numbness, localized weakness in the foot or ankle, or if the pain does not respond to rest. ICE PACKS: Apply ice packs frequently against the painful area. Many different schedules are recommended, such as "20 minutes on, 20 minutes off" or "one hour ice, two hours rest." If you need to work, you may need to go longer between ice treatments. You should plan to have the area ice packed AT LEAST one fourth of the time. The ice should be applied over the wrap, tape, or splint, or over a layer of cloth -- not directly against the skin. Some ice bags have a built-in cloth and can be put directly on the skin. WARM PACKS: After approximately two days, apply gentle heat (such as a heating pad or hot water bottle) for about 20 to 30 minutes about every two hours -- at least four times daily. Warmth and elevation will help you make a more rapid recovery, and will ease the pain considerably. Do not use HOT heat, and never apply heat for longer than 30 minutes. The continuous heat can invisibly damage skin and muscles -- even when no burn is seen on the surface. Damaged muscles can make you MORE sore. Toradol Injection You have been given an injection of ketorolac tromethamine (Toradol). This is an excellent, safe drug for pain control. It also has potent ant iinflammatory action. You should have significant pain relief within about one hour. Toradol is not addicting and is non-sedating. It does not interfere with driving or work. Call or return if you develop itching, hives, shortness of breath, or rash. Stretching Exercises for the Back The physician has recommended that you begin stretching exercises for your back. These are often used even while the back is painful. However, you should notify the physician if the activities seem to increase your pain. PELVIC TILT: Lie flat on your back with knees bent. Tighten your stomach and buttock muscles so it flattens your lower back against the floor. Hold 10 seconds. Repeat 10 times, twice daily. KNEE RAISE: Lying on the back with knees bent, raise one knee to your chest, then the other. Hold both knees against the chest 10 seconds, then lower one knee at a time. Repeat 10 times, twice daily. PARTIAL TRUNK RAISE: Lie face down, arms at your sides. Keeping your waist on the floor, use your arms raise your chest up. Support yourself on your elbows for 30 seconds. Repeat twice daily, increasing the time to two minutes as you recover. I have discussed your lab results with you, and given you a copy of your reports . Please follow-up with your primary care provider and take a copy of these results with you to this visit. I have treated you with Toradol which she states has helped her pain. I do believe your pain is from your sciatica and your low back pain. Please use [id number] Lidoderm patches to the area on your low back that is given you the problem. This will also help the pain down your legs. Tylenol or Motrin will also help this pain. Stretching exercises and walking will also help this pain. FOLLOW-UP CARE: If you have been referred to a physician for follow-up care, call the [facility] office for an appointment as you were instructed or within the next two days. If you experience worsening or a significant change in your symptoms, notify the physician immediately or return to the Emergency Department at any time for re-evaluation. Forms: Elevated Blood Pressure Referrals: JOLENE HOUSTON PA-C [Primary Care Provider] - Follow up as needed
[2019-01-12 15:14] LABS: APPEARANCE,URINE CLEAR; BILIRUBIN,URINE NEGATIVE (NEGATIVE); COLOR,URINE YELLOW; GLUCOSE, URINE NEGATIVE (NEGATIVE); KETONES,URINE NEGATIVE (NEGATIVE); LEUKOCYTE ESTERASE,URINE NEGATIVE (NEGATIVE); NITRITE,URINE NEGATIVE (NEGATIVE); PROTEIN,URINE NEGATIVE (NEGATIVE); URINE SPECIFIC GRAVITY 1.018
[2019-01-12 15:29] LABS: ALANINE AMINOTRANSFERASE 13 U/L (9-52); ALBUMIN 4.3 g/dL (3.5-5.0); ALKALINE PHOSPHATASE 57 U/L (38-126); ANION GAP 9 (5-19); ASPARTATE AMINO TRANSFERASE 29 U/L (14-36); BILIRUBIN,TOTAL 1.3 mg/dL (0.2-1.3); BLOOD UREA NITROGEN 16 mg/dL (7-20); CALCIUM 9.6 mg/dL (8.4-10.2); CARBON DIOXIDE 31 mmol/L (22-30); CHLORIDE 100 mmol/L (98-107); CREATINE KINASE 190 U/L (30-135); GLUCOSE 102 mg/dL (75-110); POTASSIUM 4.3 mmol/L (3.6-5.0); TOTAL PROTEIN 7.6 g/dL (6.3-8.2)
[2019-01-12] MEDS ORDERED: KETOROLAC TROMETHAMINE INJ/PF 30 MG/1 ML SDV IV ONE (15:43)
[2019-01-12] MEDS ORDERED: RINGERS SOLUTION,LACTATED 1,000 ML IV ONE (15:43)
[2019-01-12 16:47] VITALS: BP 125/58
== END 2019-01-12 16:45 | disposition home or self-care (01) ==
LOC: ER 14:03
DX: M54.42 Lumbago with sciatica, left side (principal); M54.41 Lumbago with sciatica, right side; G89.29 Other chronic pain; R25.2 Cramp and spasm; J45.909 Unspecified asthma, uncomplicated; I10 Essential (primary) hypertension
CPT/HCPCS: 99283; 96361; 96374; 36415; 82550; 83735; 86140; 80053; 81001; J1885; J7120

== ENCOUNTER 2019-02-28 07:34 | Emergency (ER) | payer BC ==
[2019-02-28] MEDS ORDERED: IBUPROFEN 800 MG TABLET PO ONE (09:02)
--- NOTE | 2019-02-28 09:02 | ER Document Report ---
HPI - HPI Patient complains to provider of: left shoulder pain Time Seen by Provider: 02/28/19 08:50 Onset: Yesterday Onset/Duration: Sudden Quality of pain: Achy Severity: Mild Pain Level: 2 Context: This 53-year-old female presents the emergency department with complaints of left shoulder pain that started yesterday before she went to work at [employer]. She denies trauma. Denies past medical history of injury to the shoulder. Reports she is left-handed and lifts a lot of boxes at work. Denies fever vomiting diarrhea. Denies weakness. Reports pain when she moves her left arm and pain with palpation to the left shoulder. Patient reports she took Tylenol yesterday for pain but has not taken anything today. Associated Symptoms: None Exacerbated by: Movement Relieved by: Denies Similar symptoms previously: No Recently seen / treated by doctor: No - REPRODUCTIVE Reproductive: DENIES: : Past Medical History - General Information source: Patient - Social History Smoking Status: Unknown if Ever Smoked Cigarette use (# per day): No Frequency of alcohol use: None Drug Abuse: None Occupation: [employer] Family History: Reviewed & Not Pertinent - Past Medical History Cardiac Medical History: Reports: Hx Hypertension Pulmonary Medical History: Reports: Hx Asthma Renal/ Medical History: Denies: Hx Peritoneal Dialysis Musculoskeletal Medical History: Reports Hx Arthritis, Reports Hx Musculoskeletal Deformity, Reports Hx Musculoskeletal Trauma Past Surgical History: Reports: Hx Orthopedic Surgery - Ganglion cyst left hand - Immunizations Hx Diphtheria, Pertussis, Tetanus Vaccination: Yes Vertical Provider Document - CONSTITUTIONAL Agree With Documented VS: Yes Exam Limitations: No Limitations General Appearance: WD/WN, No Apparent Distress - INFECTION CONTROL TRAVEL OUTSIDE OF THE [place] IN LAST 30 DAYS: No - HEENT HEENT: Atraumatic, Normocephalic - NECK Neck: Normal Inspection, Supple. negative: Lymphadenopathy-Left, Lymphadenopathy-Right - RESPIRATORY Respiratory: Breath Sounds Normal, No Respiratory Distress - CARDIOVASCULAR Cardiovascular: Regular Rate - MUSCULOSKELETAL/EXTREMETIES Musculoskeletal/Extremeties: MAEW, FROM, Tender - Left shoulder tender to palpation no erythema no swelling no warmth no obvious deformity full range of motion good radial pulse good cap refill. Patient complains of pain with movement. - NEURO Level of Consciousness: Awake, Alert, Appropriate Motor/Sensory: No Motor Deficit - DERM Integumentary: Warm, Dry Adult Front & Back Diagram: 1 - reports ttp Course - Re-evaluation Re-evalutation: 02/28/19 09:01 53-year-old female with no obvious injury to her left shoulder that complains of pain. She denies trauma. Reports she works at [employer] and lifts a lot of heavy boxes. She reports her shoulder just started hurting. Suspect rotator cuff injury. Patient was instructed to take Motrin for the pain follow-up with her primary care provider for referral to orthopedics as indicated. She verbalized understanding to all instructions Dictation of this chart was performed using voice recognition software; therefore, there may be some unintended grammatical errors. - Vital Signs Vital signs: Temp Pulse Resp BP Pulse Ox 97.8 F 78 20 152/81 H 97 02/28/19 07:38 02/28/19 07:38 02/28/19 07:38 02/28/19 07:38 02/28/19 07:38 Discharge - Discharge Clinical Impression: Left shoulder pain Condition: Stable Disposition: HOME, SELF-CARE Instructions: Ibuprofen (General) ([facility]), Ice Packs ([facility]) Additional Instructions: *You have been evaluated for left shoulder pain *Rest/Ice packs as discussed-20 minutes on 20 minutes off *Follow up with your primary care provider within the next week for referral to orthopedics as indicated *Take medication as prescribed *Return to ED for worsening condition, changes, needs Prescriptions: Ibuprofen [Motrin 800 mg Tablet] 800 mg PO TID #15 tablet Forms: Return to Work Referrals: JOLENE HOUSTON PA-C [Primary Care Provider] - Follow up in 1 week
[2019-02-28 09:41] VITALS: BP 144/81
== END 2019-02-28 09:20 | disposition home or self-care (01) ==
LOC: ER 07:34
DX: M25.512 Pain in left shoulder (principal); I10 Essential (primary) hypertension

== ENCOUNTER 2019-04-24 17:51 | Emergency (ER) | payer BC ==
[2019-04-24] MEDS ORDERED: IPRATROPIUM/ALBUTEROL 0.5-2.5 MG/3 ML AMPUL NEB ONE ×2 (18:27→18:28)
--- NOTE | 2019-04-24 18:27 | ER Document Report ---
ED Medical Screen (RME) - General Chief Complaint: Shortness Of Breath Stated Complaint: SHORTNESS OF BREATH/CHEST PAIN Time Seen by Provider: 04/24/19 18:21 Primary Care Provider: JOLENE HOUSTON PA-C [Primary Care Provider] - Follow up as needed Mode of Arrival: Ambulatory Information source: Patient Notes: 53-year-old female presents to ED for complaint of shortness of breath. She states she had what she thought was a asthma attack last night and took a nebulizer and felt better so she went to bed. She states she got up this morning went to work and she has been short of breath and tight all day. She states she took a nebulizer treatment this morning about 7:00 but has not had one since then. She has a history of asthma high blood pressure and choles terol. Patient states she did use her inhaler at about 4:00 AM. No wheezes noted at this time but she states she feels very tight. She states she is in menopause she has not had a stool cycle and a long time. I have greeted and performed a rapid initial assessment of this patient. A comprehensive ED assessment and evaluation of the patient, analysis of test results and completion of medical decision making process will be conducted by an additional ED providers. TRAVEL OUTSIDE OF THE [place] IN LAST 30 DAYS: No - Related Data Allergies/Adverse Reactions: No Known Allergies Allergy (Verified 04/24/19 18:20) Past Medical History - Social History Family history: Reviewed & Not Pertinent - Past Medical History Cardiac Medical History: Reports: Hx Hypertension Pulmonary Medical History: Reports: Hx Asthma Renal/ Medical History: Denies: Hx Peritoneal Dialysis Musculoskeltal Medical History: Reports Hx Arthritis, Reports Hx Musculoskeletal Deformity, Reports Hx Musculoskeletal Trauma Past Surgical History: Reports: Hx Orthopedic Surgery - Ganglion cyst left hand - Immunizations Hx Diphtheria, Pertussis, Tetanus Vaccination: Yes Physical Exam - Vital signs Vitals: Temp Pulse Resp BP Pulse Ox 98.7 F 100 18 159/77 H 95 04/24/19 18:07 04/24/19 18:07 04/24/19 18:07 04/24/19 18:07 04/24/19 18:07 Course - Vital Signs Vital signs: Temp Pulse Resp BP Pulse Ox 98.7 F 100 18 159/77 H 95 04/24/19 18:07 04/24/19 18:07 04/24/19 18:07 04/24/19 18:07 04/24/19 18:07 Doctor's Discharge - Discharge Referrals: JOLENE HOUSTON PA-C [Primary Care Provider] - Follow up as needed
[2019-04-24] MEDS ORDERED: PREDNISONE 20 MG TABLET PO ONE (18:28)
[2019-04-24 19:12] LABS: ABSOLUTE BASOPHILS # (AUTO) 0.1 10^3/uL (0.0-0.2); ABSOLUTE EOSINOPHILS # (AUTO) 0.2 10^3/uL (0.0-0.6); ABSOLUTE LYMPHOCYTES (AUTO) 2.7 10^3/uL (0.5-4.7); ABSOLUTE MONOCYTES (AUTO) 0.5 10^3/uL (0.1-1.4); ABSOLUTE NEUT (AUTO) 3.5 10^3/uL (1.7-8.2); BASOPHILS % (AUTO) 1.5 % (0-2); EOSINOPHILS % (AUTO) 3.4 % (0-6); HEMATOCRIT 40.5 % (36.0-47.0); HEMOGLOBIN 13.5 g/dL (12.0-15.5); LYMPHOCYTES % (AUTO) 37.8 % (13-45); MEAN CORPUSCULAR HEMOGLOBIN 30.7 pg (27.0-33.4); MEAN CORPUSCULAR HGB CONC 33.5 g/dL (32.0-36.0); MEAN CORPUSCULAR VOLUME 92 fl (80-97); MONOCYTES % (AUTO) 7.4 % (3-13); PLATELET COUNT 321 10^3/uL (150-450); RED BLOOD COUNT 4.41 10^6/uL (3.72-5.28); RED CELL DISTRIBUTION WIDTH 13.8 % (11.5-14.0); SEGMENTED NEUTROPHILS % (AUTO) 49.9 % (42-78); TOTAL CELLS COUNTED % (AUTO) 100 %
--- NOTE | 2019-04-24 19:17 | RADIOLOGY REPORT (SQ) ---
EXAM DESCRIPTION: CHEST 2 VIEWS COMPLETED DATE/TIME: 04/24/2019 7:09 pm REASON FOR STUDY: History of asthma chest feels tight COMPARISON: Chest radiographs November 23 EXAM PARAMETERS: NUMBER OF VIEWS: two views TECHNIQUE: Digital Frontal and Lateral radiographic views of the chest acquired. RADIATION DOSE: NA LIMITATIONS: none FINDINGS: LUNGS AND PLEURA: No opacities, masses or pneumothorax. No pleural effusion. MEDIASTINUM AND HILAR STRUCTURES: No masses or contour abnormalities. HEART AND VASCULAR STRUCTURES: Heart normal size. No evidence for failure. BONES: No acute findings. HARDWARE: None in the chest. OTHER: No other significant finding. IMPRESSION: NO ACUTE RADIOGRAPHIC FINDING IN THE CHEST. TECHNICAL DOCUMENTATION: JOB ID: [id number] [employer]- All Rights Reserved Reading location - IP/workstation name: [email or web address]
[2019-04-24 19:28] LABS: ALBUMIN 4.4 g/dL (3.5-5.0); ALKALINE PHOSPHATASE 63 U/L (38-126); ANION GAP 11 (5-19); ASPARTATE AMINO TRANSFERASE 30 U/L (14-36); BILIRUBIN,DIRECT 0.7 mg/dL (0.0-0.4); BILIRUBIN,TOTAL 1.3 mg/dL (0.2-1.3); BLOOD UREA NITROGEN 14 mg/dL (7-20); CALCIUM 9.8 mg/dL (8.4-10.2); CARBON DIOXIDE 29 mmol/L (22-30); CHLORIDE 103 mmol/L (98-107); GLUCOSE 102 mg/dL (75-110); POTASSIUM 3.8 mmol/L (3.6-5.0); TOTAL PROTEIN 7.7 g/dL (6.3-8.2)
--- NOTE | 2019-04-24 22:14 | ER Document Report ---
ED Respiratory Problem - General Chief Complaint: Shortness Of Breath Stated Complaint: SHORTNESS OF BREATH/CHEST PAIN Time Seen by Provider: 04/24/19 18:21 Primary Care Provider: JOLENE HOUSTON PA-C [Primary Care Provider] - Follow up as needed Mode of Arrival: Ambulatory Notes: Patient is a 63-year-old female with a history of asthma who comes emergency department for chief complaint of intermittent wheezing, chest tightness, and shortness of breath for the past 2 days. Symptoms do improve with albuterol but have not resolved. She denies fever, chest pain, nausea/vomiting, or any other complaints. She denies smoking. She states that this happens every year when it starts getting colder and warmer intermittently. She does state that she received treatments from [facility] that resolved her symptoms and she has no current complaints. TRAVEL OUTSIDE OF THE [place] IN LAST 30 DAYS: No - Related Data Allergies/Adverse Reactions: No Known Allergies Allergy (Verified 04/24/19 18:20) Past Medical History - General Information source: Patient - Social History Smoking Status: Never Smoker Chew tobacco use (# tins/day): No Frequency of alcohol use: None Drug Abuse: None Lives with: Family Family History: Reviewed & Not Pertinent Patient has suicidal ideation: No Patient has homicidal ideation: No - Past Medical History Cardiac Medical History: Reports: Hx Hypertension Pulmonary Medical History: Reports: Hx Asthma Renal/ Medical History: Denies: Hx Peritoneal Dialysis Musculoskeletal Medical History: Reports Hx Arthritis, Reports Hx Musculoskeletal Deformity, Reports Hx Musculoskeletal Trauma Past Surgical History: Reports: Hx Orthopedic Surgery - Ganglion cyst left hand - Immunizations Hx Diphtheria, Pertussis, Tetanus Vaccination: Yes Review of Systems - Review of Systems Constitutional: No symptoms reported EENT: No symptoms reported Cardiovascular: No symptoms reported Respiratory: See HPI Gastrointestinal: No symptoms reported Genitourinary: No symptoms reported Female Genitourinary: No symptoms reported Musculoskeletal: No symptoms reported Skin: No symptoms reported Hematologic/Lymphatic: No symptoms reported Neurological/Psychological: No symptoms reported Physical Exam - Vital signs Vitals: Temp Pulse Resp BP Pulse Ox 98.7 F 100 18 159/77 H 95 04/24/19 18:07 04/24/19 18:07 04/24/19 18:07 04/24/19 18:07 04/24/19 18:07 - Notes Notes: GENERAL: Alert, interacts well. No acute distress. HEAD: Normocephalic, atraumatic. EYES: Pupils equal, round, and reactive to light. Extraocular movements intact. ENT: Oral mucosa moist, tongue midline. Oropharynx unremarkable. Airway patent. NECK: Full range of motion. Supple. Trachea midline. LUNGS: Clear to auscultation bilaterally, no wheezes, rales, or rhonchi. No respiratory distress. HEART: Regular rate and rhythm. No murmur ABDOMEN: Soft, non-tender. Non-distended. Bowel sounds present in all 4 quadrants. GENITOURINARY: Deferred EXTREMITIES: Moves all 4 extremities spontaneously. No edema, normal radial and dorsalis pedis pulses bilaterally. No cyanosis. BACK: no cervical, thoracic, lumbar midline tenderness. No saddle anesthesia, normal distal neurovascular exam. Moves all extremities in full range of motion. NEUROLOGICAL: Alert and oriented x3. Normal speech. Cranial nerves II through XII grossly intact. PSYCH: Normal affect, normal mood. SKIN: Warm, dry, normal turgor. No rashes or lesions noted. Course - Re-evaluation Re-evalutation: Patient with symptom resolution after treatment in [facility]. She is currently symptomatic. No current complaints. Clear lungs, soft abdomen, unremarkable vital signs, well-appearing patient. Discussed options. After discussion decision was made to treat her with steroids for suspected asthma exacerbation which is consistent at this time of year. Discussed follow-up and return precautions. Patient states appreciation and agreement. - Vital Signs Vital signs: Temp Pulse Resp BP Pulse Ox 98.7 F 100 17 157/89 H 97 04/24/19 18:07 04/24/19 18:07 04/24/19 22:01 04/24/19 22:01 04/24/19 22:01 - Laboratory Result Diagrams: 04/24/19 18:57 04/24/19 18:57 Laboratory results interpreted by me: 04/24/19 18:57 Direct Bilirubin 0.7 H - EKG Interpretation by Me Additional EKG results interpreted by me: EKG shows sinus rhythm at a rate of 85, QTC of 471, normal axis. No T wave inversions or ST segment changes in consecutive leads. Discharge - Discharge Clinical Impression: Wheezing, Shortness of breath Condition: Stable Disposition: HOME, SELF-CARE Additional Instructions: Your evaluation is most consistent with an asthma exacerbation. Take the prednisone as prescribed, use your albuterol with a spacer or the nebulizer as needed. Follow-up closely with primary care. Return if you worsen including difficulty breathing, spiking fever, chest pain, or any other concerning or worsening symptoms. Prescriptions: Prednisone [Deltasone 20 mg Tablet] 2 tab PO DAILY 5 Days #10 tablet Forms: Return to Work Referrals: JOLENE HOUSTON PA-C [Primary Care Provider] - Follow up as needed
[2019-04-24 22:25] VITALS: BP 157/89
--- NOTE | 2019-04-25 | EKG REPORT ---
SEVERITY:- BORDERLINE ECG - SINUS RHYTHM BORDERLINE RIGHT AXIS DEVIATION BORDERLINE T ABNORMALITIES, ANT-LAT LEADS : Confirmed by: Modesto Conway 24-Apr-2019 23:59:47
== END 2019-04-24 22:31 | disposition home or self-care (01) ==
LOC: ER 17:51
DX: R06.02 Shortness of breath (principal); R06.2 Wheezing; R07.9 Chest pain, unspecified; I10 Essential (primary) hypertension
CPT/HCPCS: 93005; 36415; 85025; 80053; 84484; 71046; 93010; J7512; J7620

== ENCOUNTER 2019-07-31 05:30 | Emergency (ER) | payer BC ==
[2019-07-31 06:13] LABS: ABSOLUTE EOSINOPHILS # (AUTO) 0.3 10^3/uL (0.0-0.6); ABSOLUTE LYMPHOCYTES (AUTO) 2.6 10^3/uL (0.5-4.7); ABSOLUTE MONOCYTES (AUTO) 0.6 10^3/uL (0.1-1.4); ABSOLUTE NEUT (AUTO) 2.5 10^3/uL (1.7-8.2); BASOPHILS % (AUTO) 0.7 % (0-2); EOSINOPHILS % (AUTO) 5.5 % (0-6); HEMOGLOBIN 12.8 g/dL (12.0-15.5); LYMPHOCYTES % (AUTO) 42.9 % (13-45); MEAN CORPUSCULAR HEMOGLOBIN 31.6 pg (27.0-33.4); MEAN CORPUSCULAR HGB CONC 34.7 g/dL (32.0-36.0); MEAN CORPUSCULAR VOLUME 91 fl (80-97); MONOCYTES % (AUTO) 9.3 % (3-13); PLATELET COUNT 316 10^3/uL (150-450); RED BLOOD COUNT 4.07 10^6/uL (3.72-5.28); RED CELL DISTRIBUTION WIDTH 12.8 % (11.5-14.0); SEGMENTED NEUTROPHILS % (AUTO) 41.6 % (42-78); TOTAL CELLS COUNTED % (AUTO) 100 %; WHITE BLOOD COUNT 6.1 10^3/uL (4.0-10.5)
[2019-07-31 06:19] LABS: APPEARANCE,URINE SLIGHTLY-CLOUDY; BILIRUBIN,URINE NEGATIVE (NEGATIVE); COLOR,URINE YELLOW; GLUCOSE, URINE NEGATIVE (NEGATIVE); KETONES,URINE NEGATIVE (NEGATIVE); LEUKOCYTE ESTERASE,URINE SMALL (NEGATIVE); NITRITE,URINE NEGATIVE (NEGATIVE); PROTEIN,URINE NEGATIVE (NEGATIVE); URINE SPECIFIC GRAVITY 1.013; UROBILINOGEN,URINE NEGATIVE mg/dL (<2.0)
[2019-07-31 07:06] LABS: ALBUMIN 3.8 g/dL (3.5-5.0); ALKALINE PHOSPHATASE 55 U/L (38-126); ANION GAP 7 (5-19); ASPARTATE AMINO TRANSFERASE 33 U/L (14-36); BILIRUBIN,DIRECT 0.6 mg/dL (0.0-0.4); BILIRUBIN,TOTAL 0.9 mg/dL (0.2-1.3); BLOOD UREA NITROGEN 11 mg/dL (7-20); CARBON DIOXIDE 30 mmol/L (22-30); CHLORIDE 104 mmol/L (98-107); GLUCOSE 106 mg/dL (75-110); POTASSIUM 4.1 mmol/L (3.6-5.0); TOTAL PROTEIN 7.1 g/dL (6.3-8.2)
--- NOTE | 2019-07-31 07:39 | RADIOLOGY REPORT (SQ) ---
EXAM DESCRIPTION: XR CHEST 2 VIEWS COMPLETED DATE/TME: 07/31/2019 00:00 CLINICAL HISTORY: 54 years Female, chest pain COMPARISON:Apr 24 2019 NUMBER OF VIEWS/TECHNIQUE: 2, Frontal, Lateral FINDINGS: Adequate lung volume, clear parenchyma, normal cardiac silhouette, and intact bony thorax.Degenerative disc disease. IMPRESSION: No acute cardiopulmonary findings.
[2019-07-31 09:00] VITALS: BP 149/88
--- NOTE | 2019-07-31 09:45 | ER Document Report ---
ED General - General Chief Complaint: Shortness Of Breath Stated Complaint: COUGH,WHEEZING,CHEST TIGHTNESS Time Seen by Provider: 07/31/19 09:28 Primary Care Provider: JOLENE HOUSTON PA-C [Primary Care Provider] - Follow up as needed TRAVEL OUTSIDE OF THE [place] IN LAST 30 DAYS: No - HPI Notes: Patient is a 54-year-old female presents emergency department for evaluation. She has had 2 days of cough, runny nose, congestion. She has had a mild sore throat. She denies any fevers or chills. No nausea or vomiting. Eating and drinking normally. Normal bowel movements. She states this feels slightly different from her asthma, as normally she is not really coughing with it. She has tried some ggnz-gub-ishlsfw medications, including DayQuil and NyQuil, with some relief. - Related Data Allergies/Adverse Reactions: No Known Allergies Allergy (Verified 04/24/19 18:20) Home Medications: albuterol inhaler prn. atorvastatin 10 mg qhs. HCTZ 25 mg qday Past Medical History - General Information source: Patient - Social History Smoking Status: Never Smoker Family History: Reviewed & Not Pertinent Patient has suicidal ideation: No Patient has homicidal ideation: No - Past Medical History Cardiac Medical History: Reports: Hx Hypercholesterolemia, Hx Hypertension Pulmonary Medical History: Reports: Hx Asthma Renal/ Medical History: Denies: Hx Peritoneal Dialysis Musculoskeletal Medical History: Reports Hx Arthritis, Reports Hx Musculoskeletal Deformity, Reports Hx Musculoskeletal Trauma Past Surgical History: Reports: Hx Orthopedic Surgery - Ganglion cyst left hand - Immunizations Hx Diphtheria, Pertussis, Tetanus Vaccination: Yes Review of Systems - Review of Systems EENT: See HPI Respiratory: See HPI -: Yes All other systems reviewed and negative Physical Exam - Vital signs Vitals: Temp Pulse Resp BP Pulse Ox 97.9 F 92 20 143/72 H 98 07/31/19 05:37 07/31/19 05:37 07/31/19 05:37 07/31/19 05:37 07/31/19 05:37 - Notes Notes: Vital signs reviewed, please refer to chart. Head is normocephalic, atraumatic. Pupils equal round, reactive to light. Oral mucosa is moist. Pharynx is mildly erythematous without exudate. Neck is supple without meningismus. Heart is regular rate and rhythm. Lungs are clear to auscultation bilaterally. Abdomen is soft, nontender, normoactive bowel sounds throughout. Extremities without cyanosis, clubbing. Posterior calves are nontender. Peripheral pulses are equal. Skin is warm and dry. Patient is awake, alert, neurological exam is n onfocal. Course - Re-evaluation Re-evalutation: 07/31/19 09:47 Patient presents to the emergency department for evaluation. She had a chest x- ray which was found to be unremarkable. Her lungs are clear. She is oxygenating well, no respiratory distress. I suspect she has a simple URI. I explained to the patient that she should not be taking oajc-yiw-lodnqdo cold medications with Sudafed or phenylephrine, as this will raise her blood pressure. She voiced understanding to this. I wrote her a prescription for Tessalon Perles. I also explained her that she could try simply Robitussin [id number]-hlcblry to help her with her cough. She voiced understanding. Otherwise she is to follow-up with primary care this week, return to the ED with worsening extending symptoms of any sort. - Vital Signs Vital signs: Temp Pulse Resp BP Pulse Ox 98.1 F 93 16 149/88 H 100 07/31/19 08:59 07/31/19 08:59 07/31/19 08:59 07/31/19 08:59 07/31/19 08:59 - Laboratory Result Diagrams: 07/31/19 05:50 07/31/19 05:50 Laboratory results interpreted by me: 07/31/19 07/31/19 07/31/19 05:50 05:50 05:50 Seg Neutrophils % 41.6 L Direct Bilirubin 0.6 H Ur Leukocyte Esterase SMALL H Discharge - Discharge Clinical Impression: Upper respiratory infection Qualifiers: URI type: unspecified viral URI Qualified Code(s): J06.9 - Acute upper respiratory infection, unspecified Condition: Stable Disposition: HOME, SELF-CARE Instructions: Upper Respiratory Illness ([facility]), Viral Syndrome ([facility]) Additional Instructions: Rest, stay well-hydrated. Tylenol or ibuprofen as needed for headache. Use Robitussin as discussed, you can also try the Tessalon Perle prescription to help with cough suppression. If you develop worsening or new concerning symptoms of any sort, please return immediately to the emergency department for evaluation. Otherwise, follow-up with primary care this week. Prescriptions: Benzonatate [Tessalon Perles 100 mg Capsule] 100 mg PO Q8HP PRN #40 capsule PRN Reason: Referrals: JOLENE HOUSTON PA-C [Primary Care Provider] - Follow up as needed
== END 2019-07-31 09:53 | disposition home or self-care (01) ==
LOC: ER 05:30
DX: J06.9 Acute upper respiratory infection, unspecified (principal); R06.02 Shortness of breath; E78.00 Pure hypercholesterolemia, unspecified; I10 Essential (primary) hypertension
CPT/HCPCS: 36415; 71046; 80053; 81001; 85025

== ENCOUNTER 2019-08-02 17:16 | Emergency (ER) | payer BC ==
[2019-08-02 17:48] VITALS: BP 159/77
[2019-08-02] MEDS ORDERED: KETOROLAC TROMETHAMINE INJ/PF 30 MG/1 ML SDV IV ONE (18:18)
[2019-08-02] MEDS ORDERED: DIPHENHYDRAMINE HCL 50 MG/ML VIAL IV ONE (18:18)
[2019-08-02] MEDS ORDERED: PROCHLORPERAZINE EDISYLATE INJ 10 MG/2 ML VIAL IM ONE (18:18)
--- NOTE | 2019-08-02 18:18 | ER Document Report ---
ED Medical Screen (RME) - General Chief Complaint: Nausea/Vomiting Stated Complaint: VOMITTING,HEADACHE Time Seen by Provider: 08/02/19 18:11 Primary Care Provider: JONES JONES PA-C [Primary Care Provider] - Follow up as needed Mode of Arrival: Ambulatory Information source: Patient Notes: 54-year-old female presents to ED with a cold since Monday and headache and nausea and vomiting since this morning last night. She does have a history of migraines. She also has a history of asthma and high blood pressure. She lives with her family and works at [employer]. She states she does not smoke drink or use any drugs. Patient is alert oriented respirations regular nonlabored speaking in full sentences walks with even steady gait. TRAVEL OUTSIDE OF THE [place] IN LAST 30 DAYS: No - HPI Onset: Yesterday Onset/Duration: Intermittent, Waxing and waning Quality of pain: Achy Severity: Moderate Pain Level: 4 Associated Symptoms: Headache, Vomiting Exacerbated by: Other - Bright lights and noise Relieved by: Supine Similar symptoms previously: Yes Recently seen / treated by doctor: No - Related Data Smoking: Non-smoker Frequency of alcohol use: None Drug Abuse: None Allergies/Adverse Reactions: No Known Allergies Allergy (Verified 04/24/19 18:20) Past Medical History - General Information source: Patient - Social History Cigarette use (# per day): No Chew tobacco use (# tins/day): No Frequency of alcohol use: None Drug Abuse: None Occupation: [employer] Lives with: Family Family history: Reviewed & Not Pertinent - Past Medical History Cardiac Medical History: Reports: Hx Hypercholesterolemia, Hx Hypertension Pulmonary Medical History: Reports: Hx Asthma Renal/ Medical History: Denies: Hx Peritoneal Dialysis Musculoskeltal Medical History: Reports Hx Arthritis, Reports Hx Musculoskeletal Deformity, Reports Hx Musculoskeletal Trauma Skin Medical History: Reports None Psychiatric Medical History: Reports: None Traumatic Medical History: Reports: None Infectious Medical History: Reports: None Past Surgical History: Reports: Hx Orthopedic Surgery - Ganglion cyst left hand - Immunizations Immunizations up to date: Yes Hx Diphtheria, Pertussis, Tetanus Vaccination: Yes Review of Systems - Review of Systems Constitutional: No symptoms reported EENT: No symptoms reported Cardiovascular: No symptoms reported Respiratory: No symptoms reported Gastrointestinal: Nausea, Vomiting Genitourinary: No symptoms reported Female Genitourinary: No symptoms reported Musculoskeletal: No symptoms reported Skin: No symptoms reported Hematologic/Lymphatic: No symptoms reported Neurological/Psychological: Headaches -: Yes All other systems reviewed and negative Physical Exam - Vital signs Vitals: Temp Pulse Resp BP Pulse Ox 99.1 F 95 18 159/77 H 98 08/02/19 17:46 08/02/19 17:46 08/02/19 17:46 08/02/19 17:46 08/02/19 17:46 Interpretation: Normal - General General appearance: Appears well, Alert - HEENT Head: Normocephalic, Atraumatic Eyes: Normal Pupils: PERRL Ears: Normal, Tragus laceration Tympanic membrane: Normal Sinus: Normal Nasal: Purulent discharge, Swelling Mouth/Lips: Normal Mucous membranes: Normal Pharynx: Normal Neck: Normal - Respiratory Respiratory status: No respiratory distress Chest status: Nontender Breath sounds: Normal Chest palpation: Normal - Cardiovascular Rhythm: Regular Heart sounds: Normal auscultation Murmur: No - Abdominal Inspection: Normal Distension: No distension Bowel sounds: Normal Tenderness: Nontender Organomegaly: No organomegaly - Back Back: Normal, Nontender - Extremities General upper extremity: Normal inspection, Nontender, Normal color, Normal ROM, Normal temperature General lower extremity: Normal inspection, Nontender, Normal color, Normal ROM, Normal temperature, Normal weight bearing. No: Vasquez's sign - Neurological Neuro grossly intact: Yes Cognition: Normal Orientation: AAOx4 [place] Coma Scale Eye Opening: Spontaneous [place] Coma Scale Verbal: Oriented [place] Coma Scale Motor: Obeys Commands [place] Coma Scale Total: 15 Speech: Normal Cranial nerves: Normal Cerebellar coordination: Normal Motor strength normal: LUE, RUE, LLE, RLE Additional motor exam normals: Equal handle attacher Babinski reflex: Normal (flexor plantar) Sensory: Normal Biceps - Reflex grade: 2 = Normal Triceps - Reflex grade: 2 = Normal Brachioradialis - Reflex grade: 2 = Normal Knee - Reflex grade: 2 = Normal Ankle - Reflex grade: 2 = Normal - Psychological Associated symptoms: Normal affect, Normal mood - Skin Skin Temperature: Warm Skin Moisture: Dry Skin Color: Normal Course - Re-evaluation Re-evalutation: 08/02/19 22:03 After performing a Medical Screening Examination, I estimate there is LOW risk for ACUTE GLAUCOMA, TEMPORAL ARTERITIS, MENINGITIS, INCRANIAL HEMORRHAGE, or ISCHEMIC STROKE thus I consider the discharge disposition reasonable. I have reevaluated this patient multiple times and no significant life threatening changes are noted. The patient and I have discussed the diagnosis and risks, and we agree with discharging home with close follow-up with the understanding that symptoms and presentations can change. We also discussed returning to the Emergency Department immediately if new or worsening symptoms occur. We have discussed the symptoms which are most concerning (e.g., changing or worsening symptoms, new numbness or weakness, vomiting, fever) that necessitate immediate return. - Vital Signs Vital signs: Temp Pulse Resp BP Pulse Ox 99.1 F 95 18 159/77 H 98 08/02/19 17:46 08/02/19 17:46 08/02/19 17:46 08/02/19 17:46 08/02/19 17:46 Doctor's Discharge - Discharge Clinical Impression: Headache Qualifiers: Headache type: unspecified Headache chronicity pattern: acute headache Intract ability: not intractable Qualified Code(s): R51 - Headache Nausea and vomiting Qualifiers: Vomiting type: unspecified Vomiting Intractability: unspecified Qualified Code(s): R11.2 - Nausea with vomiting, unspecified Condition: Stable Disposition: HOME, SELF-CARE Additional Instructions: HEADACHE: The physician does not feel that the headache you are experiencing has a serious underlying cause. Most headaches are due to emotional stress, with resultant muscle tension (tension headache). Occasionally, headaches are secondary to changes in the blood vessels of the scalp (vascular headache and migraine headache). Sometimes, a headache is the first symptom of another developing illness, such as a viral infection. You have no evidence of stroke, bleeding, meningitis, or other serious cause of your headache. The treatment of headaches varies with the severity and cause of the pain. Not all headaches need pain shots. In fact, there is evidence that using narcotics for headaches may make them worse in the long run. The physician will determine the therapy that's in your best interest. If you develop a fever, if the headache is different from any you've p reviously experienced, or if the headache progressively worsens, then call your physician at once or go to the emergency room. USE OF DIPHENHYDRAMINE: Diphenhydramine (Benadryl) is an antihistamine and has been recommended to help treat your headache and to prevent side effects of other medications used to treat headaches. The medication can be repeated four times daily. Age Elixir (12.5 mg/tsp) 25 mg pill adult 1-2 tabs Antihistamines may cause drowsiness, especially with the first dose. Do not operate machinery or drive while under the effects of the medication. Do not combine the medication with alcohol, or with any other medication without talking to your doctor. ANTINAUSEA MEDICATION: You have been given a medication to suppress nausea and vomiting. This type of medication can be given as a shot, pill, or suppository. It will usually last for many hours. Pills and shots usually last six to eight hours, suppositories last about 12 hours. For the typical illness, only one or two doses of the medication may be necessary. Mild lightheadedness may occur. This type of medicine can cause drows iness. Do not drive or operate dangerous machinery while under its influence. Do not mix with alcohol. See your doctor at once if you have muscle spasms or tightness, or uncontrollable motions (particularly of the neck, mouth, or jaw). Persistent vomiting or severe lightheadedness should also be evaluated by the physician. INTRAVENOUS COMPAZINE FOR HEADACHE: You have received therapy for headaches, using intravenous Compazine. This treatment is dramatically successful in relieving the headache in about 50 percent of cases. When it works, it provides a rapid method of eliminating the headache without resorting to narcotics (and the problems associated with them). Most patients still feel fully alert after the Compazine, but others may be slightly drowsy. It's best not to drive or work with machinery for six to eight hours. Do not take alcohol or other medication unless you discuss it with the doctor. If you develop tightness and spasms in your muscles, especially the neck and tongue, you should return. This is a side effect which can be treated. TORADOL INJECTION: You have been given an injection of ketorolac tromethamine (Toradol). This is an excellent, safe drug for pain control. It also has potent antiinflammatory action. You should have significant pain relief within about one hour. Toradol is not addicting and is non-sedating. It does not interfere with driving or work. Call or return if you develop itching, hives, shortness of breath, or rash. FOLLOW-UP CARE: If you have been referred to a physician for follow-up care, call the physicians office for an appointment as you were instructed or within the next two days. If you experience worsening or a significant change in your symptoms, notify the physician immediately or return to the Emergency Department at any time for re-evaluation. Forms: Elevated Blood Pressure, Return to Work Referrals: JONES JONES PA-C [Primary Care Provider] - Follow up as needed
[2019-08-02] MEDS ORDERED: NORMAL SALINE 1000 ML 1,000 ML IV ONE (18:19)
== END 2019-08-02 19:44 | disposition home or self-care (01) ==
LOC: ER 17:16
DX: R51 Headache (principal); R11.2 Nausea with vomiting, unspecified; E78.00 Pure hypercholesterolemia, unspecified; I10 Essential (primary) hypertension
CPT/HCPCS: 99283; 96372; 96361; 96374; 96375; J1200; J1885; J0780; J7030

== ENCOUNTER 2020-04-15 05:20 | Emergency (ER) | payer BC ==
--- NOTE | 2020-04-15 06:32 | ER Document Report ---
ED General - General Chief Complaint: Hand Pain Stated Complaint: WRIST AND HAND PAIN SWELLING Time Seen by Provider: 04/15/20 06:22 Primary Care Provider: JONES JONES PA-C [Primary Care Provider] - Follow up as needed Notes: 54-year lady with arthritis [id number] works at [employer] presents with left base of the thumb pain and hand pain for 2 weeks. Worse with work. Not using ice ibuprofen or immobilization. No history of arthritis or repetitive motion injury. No trauma no fever no injection drug use. TRAVEL OUTSIDE OF THE [place] IN LAST 30 DAYS: No - Related Data Allergies/Adverse Reactions: No Known Allergies Allergy (Verified 04/15/20 06:17) Past Medical History - General Information source: Patient - Social History Smoking Status: Never Smoker Frequency of alcohol use: None Drug Abuse: None Family History: Reviewed & Not Pertinent Patient has homicidal ideation: No - Past Medical History Cardiac Medical History: Reports: Hx Hypercholesterolemia, Hx Hypertension Pulmonary Medical History: Reports: Hx Asthma Renal/ Medical History: Denies: Hx Peritoneal Dialysis Musculoskeletal Medical History: Reports Hx Arthritis, Reports Hx Musculoskeletal Deformity, Reports Hx Musculoskeletal Trauma Past Surgical History: Reports: Hx Orthopedic Surgery - Ganglion cyst left hand - Immunizations Immunizations up to date: Yes Hx Diphtheria, Pertussis, Tetanus Vaccination: Yes Review of Systems - Review of Systems Notes: REVIEW OF SYSTEMS GEN: Denies fever, chills, weight loss ENT: Denies sore throat, nasal discharge, ear pain EYES: Denies blurry vision, eye pain, discharge CV: Denies chest pain, palpitations, edema RESP: Denies cough, shortness of breath, wheezing GI: Denies abdominal pain, nausea, vomiting, diarrhea MSK: Denies joint pain/swelling, edema, SKIN: Denies rash, skin lesions LYMPH: Denies swollen glands/lymph nodes NEURO: Denies headache, focal weakness or numbness, dizziness PSYCH: Denies depression, suicidal or homicidal ideation PHYSICAL EXAMINATION General: No acute distress, well-nourished Head: Atraumatic, normocephalic ENT: Mouth normal, oropharynx moist, lips normal Eyes: Conjunctiva normal, pupils equal, lids normal Neck: No JVD, supple, no guarding Resp: No resp distress, equal chest rise GI: Nondistended, no guarding Back: No midline or CVA tenderness Ext: Mild pain on movement of the thumb MCP joint on the left hand with no tenderness. Positive Lauro test. Skin: Well-perfused, no rash Neuro: Awake, alert. Face symmetric. 5. Physical Exam - Vital signs Vitals: Temp Pulse Resp BP Pulse Ox 98.3 F 75 17 155/66 H 99 04/15/20 05:31 04/15/20 05:31 04/15/20 05:31 04/15/20 05:31 04/15/20 05:31 Course - Re-evaluation Re-evalutation: 04/15/20 06:30 Tendinitis versus arthritis versus overuse in the left hand without signs of acute infection or inflammatory process, has not used any meds at home We will encourage ice elevation ibuprofen and referral to primary care for physical therapy and occupational splinting but patient wants to go to work and I think this is reasonable. I doubt she has a septic arthritis or gout. Would not want a place a bulky dressing today because she wants to go to work and has been going on for 2 weeks. I have discussed with the patient there likely diagnosis, aftercare plan, follow-up plans and my usual and customary return precautions. They verbalized understanding of this. - Vital Signs Vital signs: Temp Pulse Resp BP Pulse Ox 98.3 F 75 17 155/66 H 99 04/15/20 05:31 04/15/20 05:31 04/15/20 05:31 04/15/20 05:31 04/15/20 05:31 Discharge - Discharge Clinical Impression: Tendinitis of left hand Condition: Good Disposition: HOME, SELF-CARE Referrals: JONES JONES PA-C [Primary Care Provider] - Follow up as needed
[2020-04-15 06:43] VITALS: BP 130/74
== END 2020-04-15 06:37 | disposition home or self-care (01) ==
LOC: ER 05:20
DX: M77.8 Other enthesopathies, not elsewhere classified (principal); M79.645 Pain in left finger(s); M79.642 Pain in left hand; I10 Essential (primary) hypertension; J45.909 Unspecified asthma, uncomplicated
CPT/HCPCS: 99282

== ENCOUNTER → 2020-04-28 | Outpatient (CLI) | payer BC ==
--- NOTE | 2020-04-28 11:33 | WOMENS IMAGING REPORT ---
EXAM DESCRIPTION: 3D SCREENING MAMMO BILAT IMAGES COMPLETED DATE/TIME: 04/28/2020 9:55 am REASON FOR STUDY: Z12.31 ENCOUNTER FOR SCREENING MAMMOGRAM FOR MALIGNANT NEOPLASM OF BREAST Z12.31 ENCNTR SCREEN MAMMOGRAM FOR MALIGNANT NEOPLASM OF [place] COMPARISON: Priors back to 2010 EXAM PARAMETERS: Views: Standard craniocaudal and mediolateral oblique views of each breast recorded using digital acquisition and breast tomosynthesis. Read with the assistance of CAD. .[facility] - [employer] Version 9.2 LIMITATIONS: None. FINDINGS: No suspicious masses, suspicious calcifications or architectural distortion. No areas of c oncern. IMPRESSION: NEGATIVE MAMMOGRAM. BIRADS 1. BREAST DENSITY: b. There are scattered areas of fibroglandular density. BIRAD: ASSESSMENT: 1 NEGATIVE RECOMMENDATION: ROUTINE SCREENING COMMENT: The patient has been notified of the results by letter per MQSA requirements. Additional no tification policies are in place for contacting patient with suspicious or incomplete findings. Quality ID #[id number]: The [employer] recommends an annual screening mammogram for women aged 40 years or over. This facility utilizes a reminder system to ensure that all patients receive reminder letters, and/or direct phone calls for appointments. This includes reminders for routine scr eening mammograms, diagnostic mammograms, or other Breast Imaging Interventions when appropriate. Th is patient will be placed in the appropriate reminder system. TECHNICAL DOCUMENTATION: FINDING NUMBER: (1) ASSESSMENT: (1) JOB ID: [id number] 2010 [employer]- All Rights Reserved Reading location - IP/workstation name: [email or web address]
== END ==
LOC: WI 09:19
PROVIDERS: ATTEND Physician Assistant
DX: Z12.31 Encounter for screening mammogram for malignant neoplasm of breast (principal)
CPT/HCPCS: 77063; 77067

== ENCOUNTER 2020-06-15 17:46 | Emergency (ER) | payer BC ==
[2020-06-15] MEDS ORDERED: ACETAMINOPHEN 325 MG TABLET PO ONE (18:45)
--- NOTE | 2020-06-15 18:48 | ER Document Report ---
ED Medical Screen (RME) - General Chief Complaint: Cough Stated Complaint: CONGESTION Time Seen by Provider: 06/15/20 18:41 Primary Care Provider: JOLENE HOUSTON PA-C [Primary Care Provider] - Follow up as needed Mode of Arrival: Ambulatory Information source: Patient Notes: 55-year-old female presents to ED for cough congestion shortness of breath fever with elevated pulse 114. Her temp is 100.7 I have ordered Tylenol. I have ordered all the Covid work-up with chest x-ray and blood work and urine. She will be seen by another provider. Is alert oriented respirations regular nonlabored at this time. She states the cough congestion or shortness of breath started on Monday and now is the first time she has had a fever. She states she does have a history of elevated blood pressure and she has been using NyQuil and DayQuil. She does also have a history of asthma. I have greeted and performed a rapid initial assessment of this patient. A comprehensive ED assessment and evaluation of the patient, analysis of test results and completion of medical decision making process will be conducted by an additional ED providers. TRAVEL OUTSIDE OF THE [place] IN LAST 30 DAYS: No - Related Data Allergies/Adverse Reactions: No Known Allergies Allergy (Verified 04/15/20 06:17) Past Medical History - Social History Family history: Reviewed & Not Pertinent - Past Medical History Cardiac Medical History: Reports: Hx Hypercholesterolemia, Hx Hypertension Pulmonary Medical History: Reports: Hx Asthma Renal/ Medical History: Denies: Hx Peritoneal Dialysis Musculoskeltal Medical History: Reports Hx Arthritis, Reports Hx Musculoskeletal Deformity, Reports Hx Musculoskeletal Trauma Past Surgical History: Reports: Hx Orthopedic Surgery - Ganglion cyst left hand - Immunizations Immunizations up to date: Yes Hx Diphtheria, Pertussis, Tetanus Vaccination: Yes Physical Exam - Vital signs Vitals: Temp Pulse Resp BP Pulse Ox 100.7 F H 114 H 20 150/73 H 97 06/15/20 18:07 06/15/20 18:06/15/20 18:07 06/15/20 18:07 06/15/20 18:07 Course - Vital Signs Vital signs: Temp Pulse Resp BP Pulse Ox 100.7 F H 114 H 20 150/73 H 97 06/15/20 18:07 06/15/20 18:07 06/15/20 18:07 06/15/20 18:07 06/15/20 18:07 Doctor's Discharge - Discharge Referrals: JOLENE HOUSTON PA-C [Primary Care Provider] - Follow up as needed
--- NOTE | 2020-06-15 19:17 | RADIOLOGY REPORT (SQ) ---
EXAM DESCRIPTION: CHEST SINGLE VIEW IMAGES COMPLETED DATE/TIME: 06/15/2020 6:59 pm REASON FOR STUDY: Cough congestion fever COMPARISON: 07/31/2019 EXAM PARAMETERS: NUMBER OF VIEWS: One view. TECHNIQUE: Single frontal radiographic view of the chest acquired. RADIATION DOSE: NA LIMITATIONS: None. FINDINGS: LUNGS AND PLEURA: Cannot exclude very faint opacification in the right base. The right he midiaphragm remains well-defined. MEDIASTINUM AND HILAR STRUCTURES: No masses. Contour normal. HEART AND VASCULAR STRUCTURES: Heart normal in size. Normal vasculature. BONES: No acute findings. HARDWARE: None in the chest. OTHER: No other significant finding. IMPRESSION: Cannot exclude very limited right lower lobe pneumonia. TECHNICAL DOCUMENTATION: JOB ID: [id number] 2010 [employer]- All Rights Reserved Reading location - IP/workstation name: [email or web address]
[2020-06-15 19:50] LABS: ABSOLUTE MONOCYTES (AUTO) 0.6 10^3/uL (0.1-1.4); BASOPHILS % (AUTO) 0.4 % (0-2); EOSINOPHILS % (AUTO) 0.1 % (0-6); HEMOGLOBIN 13.1 g/dL (12.0-15.5); TOTAL CELLS COUNTED % (AUTO) 100 %
[2020-06-15 19:55] LABS: ABSOLUTE LYMPHOCYTES (AUTO) 1.6 10^3/uL (0.5-4.7); ABSOLUTE NEUT (AUTO) 4.6 10^3/uL (1.7-8.2); HEMATOCRIT 37.8 % (36.0-47.0); LYMPHOCYTES % (AUTO) 22.9 % (13-45); MEAN CORPUSCULAR HGB CONC 34.7 g/dL (32.0-36.0); MEAN CORPUSCULAR VOLUME 89 fl (80-97); MONOCYTES % (AUTO) 9.4 % (3-13); PLATELET COUNT 264 10^3/uL (150-450); RED BLOOD COUNT 4.23 10^6/uL (3.72-5.28); RED CELL DISTRIBUTION WIDTH 13.1 % (11.5-14.0); SEGMENTED NEUTROPHILS % (AUTO) 67.2 % (42-78); WHITE BLOOD COUNT 6.8 10^3/uL (4.0-10.5)
[2020-06-15 20:07] LABS: ALKALINE PHOSPHATASE 54 U/L (38-126); ANION GAP 9 (5-19); ASPARTATE AMINO TRANSFERASE 25 U/L (14-36); BILIRUBIN,DIRECT 0.9 mg/dL (0.0-0.4); BILIRUBIN,TOTAL 1.6 mg/dL (0.2-1.3); BLOOD UREA NITROGEN 10 mg/dL (7-20); CARBON DIOXIDE 26 mmol/L (22-30); CHLORIDE 104 mmol/L (98-107); GLUCOSE 122 mg/dL (75-110); TOTAL PROTEIN 7.3 g/dL (6.3-8.2)
[2020-06-15 20:38] LABS: A TYPE INFLUENZA AG NEGATIVE (NEGATIVE); B INFLUENZA AG NEGATIVE (NEGATIVE)
[2020-06-16] MEDS ORDERED: PREDNISONE 20 MG TABLET PO ONE (07:50)
[2020-06-16] MEDS ORDERED: AZITHROMYCIN 250 MG TABLET PO ONE (07:50)
[2020-06-16 08:12] VITALS: BP 153/67
--- NOTE | 2020-06-16 14:04 | ER Document Report ---
Entered by RUFINO SIDDIQI SCRIBE 06/16/20 0730 Acting as scribe for:AKOSUA MOORE MD ED Respiratory Problem - General Chief Complaint: Cough Stated Complaint: CONGESTION Time Seen by Provider: 06/15/20 18:41 Primary Care Provider: JOLENE HOUSTON PA-C [Primary Care Provider] - Follow up as needed Mode of Arrival: Ambulatory Information source: Patient Notes: This 55 year old female patient with a history of asthma presents to the ED today with complaints of wheezing and cough that started x3 days ago. Patient states that the cough is productive with yellow sputum. Denies fever. She reports that she does have enough medicine for her inhaler at home. TRAVEL OUTSIDE OF THE [place] IN LAST 30 DAYS: No - Related Data Allergies/Adverse Reactions: No Known Allergies Allergy (Verified 04/15/20 06:17) Past Medical History - General Information source: Patient - Social History Smoking Status: Unknown if Ever Smoked Cigarette use (# per day): No Chew tobacco use (# tins/day): No Smoking Education Provided: No Family History: Reviewed & Not Pertinent Patient has homicidal ideation: No - Past Medical History Cardiac Medical History: Reports: Hx Hypercholesterolemia, Hx Hypertension Pulmonary Medical History: Reports: Hx Asthma Musculoskeletal Medical History: Reports Hx Arthritis, Reports Hx Musculoskeletal Deformity, Reports Hx Musculoskeletal Trauma Past Surgical History: Reports: Hx Orthopedic Surgery - Ganglion cyst removal on left hand - Immunizations Immunizations up to date: Yes Hx Diphtheria, Pertussis, Tetanus Vaccination: Yes Review of Systems - Review of Systems Constitutional: See HPI. denies: Fever EENT: No symptoms reported Cardiovascular: No symptoms reported Respiratory: See HPI, Cough, Sputum, Wheezing Gastrointestinal: No symptoms reported Genitourinary: No symptoms reported Female Genitourinary: No symptoms reported Musculoskeletal: No symptoms reported Skin: No symptoms reported Hematologic/Lymphatic: No symptoms reported Neurological/Psychological: No symptoms reported -: Yes All other systems reviewed and negative Physical Exam - Vital signs Vitals: Temp Pulse Resp BP Pulse Ox 100.7 F H 114 H 20 150/73 H 97 06/15/20 18:07 06/15/20 18:07 06/15/20 18:07 06/15/20 18:07 06/15/20 18:07 - General General appearance: Appears well, Alert In distress: None - HEENT Head: Normocephalic, Atraumatic Eyes: Normal Pupils: PERRL Nasal: Clear rhinorrhea - Respiratory Respiratory status: No respiratory distress Chest status: Nontender Breath sounds: Rhonchi, Wheezing - Faint wheezing Chest palpation: Normal - Cardiovascular Rhythm: Regular Heart sounds: Normal auscultation Murmur: No Friction rub: No Gallop: None auscultated - Abdominal Inspection: Normal Distension: No distension Bowel sounds: Normal Tenderness: Nontender - Abdomen soft Organomegaly: No organomegaly - Back Back: Normal, Nontender - Extremities General upper extremity: Normal inspection General lower extremity: Normal inspection. No: Edema - Neurological Neuro grossly intact: Yes Orientation: AAOx4 [place] Coma Scale Eye Opening: Spontaneous [place] Coma Scale Verbal: Oriented [place] Coma Scale Motor: Obeys Commands [place] Coma Scale Total: 15 - Psychological Associated symptoms: Normal affect, Normal mood - Skin Skin Temperature: Warm Skin Moisture: Dry Skin Color: Normal Course - Re-evaluation Re-evalutation: 06/16/20 07:56 The patient was evaluated during the global COVID-19 pandemic and that diagnosis was suspected/considered upon their initial presentation. Their evaluation, treatment and testing was consistent with current guidelines for patients who present with complaints or symptoms that may be related to COVID-19. - Vital Signs Vital signs: Temp Pulse Resp BP Pulse Ox 98.7 F 88 16 138/74 H 98 06/16/20 06:08 06/16/20 06:08 06/16/20 06:08 06/16/20 06:08 06/16/20 06:08 - Laboratory Results Result Diagrams: 06/15/20 19:20 06/15/20 19:20 Laboratory Results Interpreted: 06/15/20 19:20 Glucose 122 H Total Bilirubin 1.6 H Direct Bilirubin 0.9 H Critical Laboratory Results Reviewed: No Critical Results - Radiology Results Critical Radiology Results Reviewed: No Critical Results - There is suggestion of a right lower lobe infiltrate. Discharge - Discharge Clinical Impression: Asthma exacerbation Qualifiers: Asthma severity: mild Asthma persistence: unspecified Qualified Code(s): J45.901 - Unspecified asthma with (acute) exacerbation Pneumonia Qualifiers: Pneumonia type: due to unspecified organism Laterality: right Lung location: lower lobe of lung Qualified Code(s): J18.9 - Pneumonia, unspecified organism Condition: Stable Disposition: HOME, SELF-CARE Instructions: COVID-19 Guidance for Persons Under Investigation Additional Instructions: Pneumonia Your examination suggests that you have pneumonia. This is an infection of the lung tissue, usually caused by bacteria or a virus. Symptoms include cough, fever, shaking chills, chest pain, shortness of breath, and coughing up bloody sputum. Treatment for bacterial pneumonia includes rest, antibiotics, increasing your clear liquid intake, a cool mist humidifier at your bedside, and fever medication. Often, a repeat chest X-ray is performed in a few weeks--even if you feel better--to ascertain whether the infection has completely resolved and no underlying lung problem is present. You should call the physician if you develop persistent vomiting, high fever that does not respond to fever medication, increasing shortness of breath, confusion, or lethargy. Also, failure to improve within two to three days is an indication for re-examination. Start the Zithromax and prednisone tomorrow. You were given today's dose here in the emergency room. Use your inhalers as needed for wheezing. Drink plenty of fluids get plenty of rest. Take Robitussin-DM to help control your cough and to loosen up mucus. Follow-up with your primary care provider if not improving over the next few days. RETURN TO THE EMERGENCY ROOM IF ANY NEW OR WORSENING SYMPTOMS. Prescriptions: Prednisone [Deltasone 10 mg Tablet] 10 mg PO ASDIR PRN #21 tablet PRN Reason: Azithromycin [Zithromax 250 mg Tablet] 250 mg PO DAILY #4 tablet Forms: Return to Work Referrals: JOLENE HOUSTON PA-C [Primary Care Provider] - Follow up as needed I personally performed the services described in the documentation, reviewed and edited the documentation which was dictated to the scribe in my presence, and it accurately records my words and actions.
== END 2020-06-16 08:11 | disposition home or self-care (01) ==
LOC: ER 17:46
DX: U07.1 COVID-19 (principal); J12.89 Other viral pneumonia; J45.901 Unspecified asthma with (acute) exacerbation; Z79.899 Other long term (current) drug therapy; I10 Essential (primary) hypertension
CPT/HCPCS: 99284; 36415; 87070; 87880; 85025; 80053; 87804; 71045; U0003; J7512; C9803; 87635